=== PATIENT | female | born 1970 | race Two or more races ===

== ENCOUNTER 2016-08-31 17:42 | Emergency (ER) | payer BC ==
[2016-08-31] MEDS ORDERED: Ondansetron INJ* 2 MG/ML VIAL IV ONE (18:38)
[2016-08-31] MEDS ORDERED: methylPREDNISolone 125 MG* 2 ML VIAL IV ONE (18:38)
[2016-08-31] MEDS ORDERED: NS 0.9% 1000 ML* 2,000 ML IV ONE (18:38)
[2016-08-31] MEDS ORDERED: Morphine INJ* 4 MG/ML 1 ML CARPUJECT IV ONE ×2 (18:38→18:48)
[2016-08-31 18:51] VITALS: BP 94/65
[2016-08-31 18:54] LABS: Hematocrit 36 % (35-47); Mean Corpuscular HGB Conc 33 g/dl (31-36); Mean Corpuscular Hemoglobin 29 pg (27-31); Mean Corpuscular Volume 88 fL (80-97); Mean Platelet Volume 8 um3 (7.4-10.4); Red Cell Distribution Width 14 % (10.5-15); White Blood Count 8.4 10^3/ul (3.5-10.8)
--- NOTE | 2016-08-31 19:05 | RAD ---
Indication: Shortness of breath, pneumonia history of pulmonary hypertension. 2 views of the chest demonstrates no mediastinal shift. Enlarged pulmonary arteries are noted consistent with pulmonary arterial hypertension. Lung peterson are clear. When compared to previous exam of February 07, 2016 findings are unchanged. IMPRESSION: No pneumonia is identified. Sequela of pulmonary arterial hypertension with enlarged kamaljit and pulmonary arteries is noted.
[2016-08-31 19:10] LABS: Albumin 3.9 g/dL (3.2-5.2); Calcium 9.1 mg/dL (8.6-10.3); EGFR African American 106.1 (>60); EGFR Non-African American 82.5 (>60); Globulin 3.3 g/dL (2-4); Potassium 3.9 mmol/L (3.5-5.0); Total Bilirubin 0.3 mg/dL (0.2-1.0); Total Protein 7.2 g/dL (6.4-8.9)
[2016-08-31] MEDS ORDERED: Azithromycin TAB* 250 MG PO ONE (19:37)
[2016-08-31] MEDS ORDERED: oxyCODONE/Acetamin 5/325 MG* TAB PO ONE (19:39)
--- NOTE | 2016-08-31 20:10 | ED ---
Manolo Quintana Anna, scribed for Colby Charles MD on 08/31/16 at 1837 . Shortness of Breath - HPI Summary HPI Summary: Patient is a 46 y/o female coming to [facility] presenting with SOB that began one week ago. She tripped getting out of a chair and hit her chest on a windowsill one week ago. At that time, she denied soreness or watters on her chest. She then began to feel pressure inside her chest that made it hard to breathe. She feels like she is wheezing. It is painful to cough and laugh, and the pain is exacerbated by deep breaths. She has a cough which she describes as unproductive and dry. She has had chills and some loss of appetite. She denies edema, pain in lower extremities, fever, ecchymosis. She had a cough one month ago and was prescribed a Z pack. She denies other recent illness or exposure to sick contacts. She has had PNA before, but her symptoms do not feel similar to her previous PNA. - History of Current Complaint Chief Complaint: EDShortnessOfBreath Hx Obtained From: Patient, Family/Hotel Front Desk Clerk - Accompanied by family Onset/Duration: Lasting Weeks, Still Present Current Severity: Moderate Aggrevating Factors: Deep Breaths Associated Signs & Symptoms: Cough (Nonproductive), Wheezing, Chills - Allergy/Home Medications Allergies/Adverse Reactions: Allergies Allergy/AdvReac Type Severity Reaction Status Date / Time Adhesive Tape Allergy Rash Verified 02/10/16 09:59 Efavirenz [From Sustiva] Allergy Rash Verified 02/10/16 09:59 Ritonavir Allergy Rash Verified 02/10/16 09:59 [From Norvir Capsule] PMH/Surg Hx/FS Hx/Imm Hx Cardiovascular History: Reports: Hx Hypertension - PULMONARY HTN GI History: Reports: Other GI Disorders - PT REPORTS CHRONIC N/V EVER SINCE HIV DIAGNOSIS Sensory History: Reports: Hx Contacts or Glasses - LEFT AT HOME Opthamlomology History: Reports: Hx Contacts or Glasses - LEFT AT HOME Psychiatric History: Reports: Hx Anxiety - Surgical History Surgery Procedure, Year, and Place: DEVIATED SEPTUM REPAIR NOVEMBER 2015. HYSTERECTOMY 2O+YRS AGO Infectious Disease History: Yes Infectious Disease History: Reports: Hx Hepatitis - HEP C, Hx Human Immunodeficiency Virus (HIV) Denies: Traveled Outside the [place] in Last 30 Days - Family History Known Family History: Positive: Hypertension - Social History Lives: With Family Alcohol Use: Occasionally Hx Substance Use: No Substance Use Type: Reports: None Hx Tobacco Use: Yes Smoking Status (MU): Former Smoker Review of Systems Positive: Chills, Other - loss of appetite. Negative: Fever Positive: Shortness Of Breath, Cough Negative: Arthralgia, Myalgia Negative: Bruising All Other Systems Reviewed And Are Negative: Yes Physical Exam - Summary Physical Exam Summary: The patient is well-nourished in no acute distress and in no acute pain. The skin is warm and dry and skin color reflects adequate perfusion. HEENT: The head is normocephalic and atraumatic. The pupils are equal and reactive. The conjunctivae are clear and without drainage. Nares are patent and without drainage. Mouth reveals moist mucous membranes and the throat is without erythema and exudate. The external ears are intact. The ear canals are patent and without drainage. The tympanic membranes are intact. Neck is supple with full range of motion and non-tender. There are no carotid bruits. There is no neck vein distension. Respiratory: Reproducible pain over sternum and where ribs articulate. She has crackles, rhonchi, and wheezing at the base of the right lung upon auscultation. Cardiovascular: Heart is regular rhythm, slightly fast. Pulse is 93 bpm. There is no murmur or rub auscultated. There is no peripheral edema and pulses are symmetrical and equal. Abdomen: The abdomen is soft and non-tender. There are normal bowel sounds heard in all four quadrants and there is no organomegaly palpated. Musculoskeletal: There is no back pain noted. Extremities are non-tender with full range of motion. Capillary refill is 3 seconds. There is some cyanosis of nail beds. There is no peripheral edema or calf tenderness elicited. Neurological: Patient is alert and oriented to person, place and time. The patient has symmetrical motor strength in all four extremities. Cranial nerves are grossly intact. Deep tendon reflexes are symmetrical and equal in all four extremities. Psychiatric: The patient has an appropriate affect and does not exhibit any depression. She appears anxious. Triage Information Reviewed: Yes Vital Signs On Initial Exam: Initial Vitals Temp Pulse Resp BP Pulse Ox 98.6 F 93 16 105/62 96 08/31/16 17:45 03/12/17 17:45 08/31/16 17:45 08/31/16 17:45 08/31/16 17:45 Vital Signs Reviewed: Yes Diagnostics - Vital Signs Vital Signs Temp Pulse Resp BP Pulse Ox 08/31/16 17:45 98.6 F 93 16 105/62 96 - Laboratory Lab Results: Lab Results 08/31/16 08/31/16 08/31/16 Range/Units 18:35 18:35 18:45 WBC 8.4 (3.5-10.8) 10^3/ul RBC 4.10 (4.0-5.4) 10^6/ul Hgb 12.0 (12.0-16.0) g/dl Hct 36 (35-47) % MCV 88 (80-97) fL MCH 29 (27-31) pg MCHC 33 (31-36) g/dl RDW 14 (10.5-15) % Plt Count 211 (150-450) 10^3/ul MPV 8 (7.4-10.4) um3 Neut % (Auto) 45.6 (38-83) % Lymph % (Auto) 44.2 (25-47) % Caroline % (Auto) 8.0 (1-9) % Eos % (Auto) 1.5 (0-6) % Baso % (Auto) 0.7 (0-2) % Absolute Neuts (auto) 3.8 (1.5-7.7) 10^3/ul Absolute Lymphs (auto) 3.7 (1.0-4.8) 10^3/ul Absolute Monos (auto) 0.7 (0-0.8) 10^3/ul Absolute Eos (auto) 0.1 (0-0.6) 10^3/ul Absolute Basos (auto) 0.1 (0-0.2) 10^3/ul Absolute Nucleated RBC 0.01 10^3/ul Nucleated RBC % 0.1 INR (Anticoag Therapy) 0.85 L (0.89-1.11) D-Dimer, Quantitative < 200 (Less Than 230) ng/mL Sodium 135 (133-145) mmol/L Potassium 3.9 (3.5-5.0) mmol/L Chloride 107 (101-111) mmol/L Carbon Dioxide 22 (22-32) mmol/L Anion Gap 6 (2-11) mmol/L BUN 18 (6-24) mg/dL Creatinine 0.75 (0.51-0.95) mg/dL Est GFR ( Amer) 106.1 (>60) Est GFR (Non-Af Amer) 82.5 (>60) BUN/Creatinine Ratio 24.0 H (8-20) Glucose 96 (70-100) mg/dL Lactic Acid (0.5-2.0) mmol/L Calcium 9.1 (8.6-10.3) mg/dL Total Bilirubin 0.30 (0.2-1.0) mg/dL AST 15 (13-39) U/L ALT 7 (7-52) U/L Alkaline Phosphatase 69 (34-104) U/L Troponin I 0.00 (<0.04) ng/mL B-Natriuretic Peptide ( - 100) pg/mL Total Protein 7.2 (6.4-8.9) g/dL Albumin 3.9 (3.2-5.2) g/dL Globulin 3.3 (2-4) g/dL Albumin/Globulin Ratio 1.2 (1-3) 08/31/16 08/31/16 Range/Units 18:45 18:45 WBC (3.5-10.8) 10^3/ul RBC (4.0-5.4) 10^6/ul Hgb (12.0-16.0) g/dl Hct (35-47) % MCV (80-97) fL MCH (27-31) pg MCHC (31-36) g/dl RDW (10.5-15) % Plt Count (150-450) 10^3/ul MPV (7.4-10.4) um3 Neut % (Auto) (38-83) % Lymph % (Auto) (25-47) % Caroline % (Auto) (1-9) % Eos % (Auto) (0-6) % Baso % (Auto) (0-2) % Absolute Neuts (auto) (1.5-7.7) 10^3/ul Absolute Lymphs (auto) (1.0-4.8) 10^3/ul Absolute Monos (auto) (0-0.8) 10^3/ul Absolute Eos (auto) (0-0.6) 10^3/ul Absolute Basos (auto) (0-0.2) 10^3/ul Absolute Nucleated RBC 10^3/ul Nucleated RBC % INR (Anticoag Therapy) (0.89-1.11) D-Dimer, Quantitative (Less Than 230) ng/mL Sodium (133-145) mmol/L Potassium (3.5-5.0) mmol/L Chloride (101-111) mmol/L Carbon Dioxide (22-32) mmol/L Anion Gap (2-11) mmol/L BUN (6-24) mg/dL Creatinine (0.51-0.95) mg/dL Est GFR ( Amer) (>60) Est GFR (Non-Af Amer) (>60) BUN/Creatinine Ratio (8-20) Glucose (70-100) mg/dL Lactic Acid 0.8 (0.5-2.0) mmol/L Calcium (8.6-10.3) mg/dL Total Bilirubin (0.2-1.0) mg/dL AST (13-39) U/L ALT (7-52) U/L Alkaline Phosphatase (34-104) U/L Troponin I (<0.04) ng/mL B-Natriuretic Peptide 15 ( - 100) pg/mL Total Protein (6.4-8.9) g/dL Albumin (3.2-5.2) g/dL Globulin (2-4) g/dL Albumin/Globulin Ratio (1-3) Result Diagrams: 08/31/16 18:35 08/31/16 18:45 Lab Statement: Any lab studies that have been ordered have been reviewed, and results considered in the medical decision making process. - Radiology CXR Xray Interpretation: Positive (See Comments) Radiology Interpretation Completed By: Radiologist - IMPRESSION: No pneumonia is identified. Sequela of pulmonary arterial hypertension with enlarged kamaljit and pulmonary arteries is noted. - EKG 1936 Cardiac Rate: NL - 77 bpm EKG Rhythm: Sinus Rhythm EKG Interpretation: t-wave inversions in V1, V2, V3. Poor r-wave progression. EKG Comparison: No Significant Change - EKG same compared to 02/07/2016 Re-Evaluation - Re-Evaluation First Eval Re-Evaluation Time: 19:30 Comment: Patient still has some pain with deep breaths. Discussed results and plan of care with patient and family. They are agreeable with plan. Patient has a standing appointment with her bench scientist in five days. Course/Dx - Course Assessment/Plan: 46 y/o woman with one week history of chest discomfort aater falling nd striking her chest on a windowsill. She has pain with inspiration. Pain is worse when she lies supine. She says she is SOB. History HIV and pulmonary hypertension. Denies calf pain. Denies recent surgeries. Non-smoker. Denies fever and chills. CXR reveals no PNA or PTX. D-dimer < 200. Lab studies WNL. Treated with Abx and analgesia. Dx is bronchitis, chest wall pain, and follow-up with PCP. - Diagnoses Differential Diagnosis/HQI/PQRI: Positive: Bronchitis, CHF, PA, Pneumonia, Pneumothorax, Pulmonary Embolism, Other - pericarditis Provider Diagnoses: Bronchitis, Chest wall pain Discharge - Discharge Plan Condition: Stable Disposition: HOME Prescriptions: Azithromycin TAB* [Zithromax TAB (Z-EVETTE) 250 mg #6 tabs] 2 tab PO .TODAY, THEN 1 DAILY #1 evette Ibuprofen TAB* [Motrin TAB* 600 MG] 600 mg PO Q6H PRN #30 tab PRN Reason: pain oxyCODONE/Acetamin 5/325 MG* [Percocet 5/325 TAB*] 1 tab PO Q6H PRN #20 tab MDD 4 PRN Reason: pain Patient Education Materials: Ibuprofen (By mouth), Oxycodone/Acetaminophen (By mouth), Azithromycin (By mouth), Dyspnea (ED) Referrals: Ольга Childress MD [Primary Care Provider] - Additional Instructions: Follow up with primary care provider within 48 hours. Return to the emergency department for any new or worsening symptoms. The documentation as recorded by the Manolo lock Anna accurately reflects the service I personally performed and the decisions made by , Colby Charles MD.
== END 2016-08-31 20:15 | disposition home or self-care (01) ==
LOC: ED 17:42
DX: J40 Bronchitis, not specified as acute or chronic (principal); R07.89 Other chest pain; I27.2 Other secondary pulmonary hypertension; B20 Human immunodeficiency virus [HIV] disease; Z87.01 Personal history of pneumonia (recurrent); Z87.891 Personal history of nicotine dependence
CPT/HCPCS: 36415; 71020; 80053; 83605; 83880; 84484; 85025; 85379; 85610; 93005; 96360; 96374; 96375; 96376; 99283; A9270-GY; J2270; J2405; J2930

== ENCOUNTER 2016-10-29 17:01 | Emergency (ER) | payer BC ==
[2016-10-29] MEDS ORDERED: Albuterol/Ipratropium NEB.SOL* Albuterol 2.5 MG/Ipratropium 0.5 MG 3 ML INH ONE ×2 (18:00→20:47)
[2016-10-29] MEDS ORDERED: HYDROmorphone* 1 MG/ML 1 ML SYR IV ONE (18:00)
[2016-10-29 18:35] LABS: Hematocrit 35 % (35-47); Hemoglobin 11.3 g/dl (12.0-16.0); Mean Corpuscular HGB Conc 33 g/dl (31-36); Mean Corpuscular Hemoglobin 28 pg (27-31); Mean Corpuscular Volume 85 fL (80-97); Mean Platelet Volume 8 um3 (7.4-10.4); Red Blood Count 4.06 10^6/ul (4.0-5.4); Red Cell Distribution Width 14 % (10.5-15); White Blood Count 7.4 10^3/ul (3.5-10.8)
[2016-10-29 18:53] LABS: Albumin 4.1 g/dL (3.2-5.2); BUN/Creatinine Ratio 13.6 (8-20); Calcium 9.5 mg/dL (8.6-10.3); EGFR African American 88.2 (>60); EGFR Non-African American 68.6 (>60); Globulin 3.8 g/dL (2-4); Total Bilirubin 0.4 mg/dL (0.2-1.0); Total Protein 7.9 g/dL (6.4-8.9)
[2016-10-29 18:58] LABS: Potassium 3.7 mmol/L (3.5-5.0)
[2016-10-29] MEDS ORDERED: Iohexol 350* (CONTRAST) 500 ML MDV IV ONE (19:16)
--- NOTE | 2016-10-29 20:07 | RAD ---
INDICATION: Chest pain. Diagnosed with pneumonia today. COMPARISON: July 01, 2008 CT. TECHNIQUE: Multidetector CT images were obtained from the lung apices to the upper abdomen with 61 mL Omnipaque 350 IV contrast. Pulmonary angiogram protocol. Multiplanar reformation including with maximum intensity projection. REPORT: Negative for central endobronchial lesions. Clear lungs and pleural spaces. Negative for pneumothorax. Normal size range mediastinal and hilar lymph nodes with dominant 0.8 cm short axis precarinal lymph node. Negative for thoracic lymphadenopathy. Negative for cardiomegaly or pericardial effusion. Normal diameter thoracic aorta. Enlarged main pulmonary arteries measuring up to 3.3 cm diameter on the RIGHT and 3.0 cm diameter on the LEFT without significant interval change. For comparison the ascending aorta at the level of the main pulmonary arteries measures 2.5 cm diameter. Suggestion of hypertrophy at the RIGHT cardiac ventricle. No filling defects are identified from the main to the subsegmental pulmonary arteries to indicate presence of a pulmonary embolism. Unremarkable Limited images through the upper abdomen. Healed LEFT second, third, fourth, and fifth rib fractures. Mild multilevel thoracic degenerative spondylosis with associated reactive endplate sclerosis. Negative for suspicious focal osseous lesions. IMPRESSION: 1. No evidence for pulmonary embolism. 2. Stigmata of pulmonary arterial hypertension. 3. No evidence for pneumonia.
[2016-10-29] MEDS ORDERED: methylPREDNISolone 125 MG* 2 ML VIAL IV ONE (20:47)
[2016-10-29 21:48] VITALS: BP 102/57
[2016-10-29] MEDS ORDERED: Albuterol HFA INHALER* 8 gm MDI INH ONE (22:09)
--- NOTE | 2016-10-30 15:42 | ED ---
Brandon Quintana Alok, scribed for Austin Miranda MD on 10/29/16 at 1810 . Complex/Multi-Sys Presentation - HPI Summary HPI Summary: 46F presents to the ED from her PCP at [facility] for CP and a productive cough. Pt states that what began as a productive cough with yellow sputum and sinus headache one week ago was treated with a Zpak. Following the Zpak, the pt states that her symptoms were worsen than before with a more aggressive cough with clear sputum. Pt was put on a different antibiotic and given an CXR at [facility] showing "dilated pulmonary vessels and arterial dilation". Pt also c/o left sided CP beginning 4 days ago which worsens with deep breaths. Pt denies fever greater than one degree. Pt has h/o PNA and states her symptoms feel different. Additional PMHx includes HIV, and pulmonary arterial hypertension. Pt was a former tobacco smoker 3 years ago. Pt is allergic to Zofran. - History Of Current Complaint Chief Complaint: EDChestPainROMI Time Seen by Provider: 10/29/16 17:33 Hx Obtained From: Patient Onset/Duration: Gradual Onset, Lasting Days, Still Present Timing: Constant Severity Currently: Moderate Severity Initially: Moderate Location: Pain At: - Left side chest Aggravating Factor(s): Deep Breath Associated Signs And Symptoms: Positive: Headache, Cough, Wheezing, Chest Pain. Negative: Fever - Allergies/Home Medications Allergies/Adverse Reactions: Allergies Allergy/AdvReac Type Severity Reaction Status Date / Time Adhesive Tape Allergy Rash Verified 02/10/16 09:59 Efavirenz [From Sustiva] Allergy Rash Verified 02/10/16 09:59 Ritonavir Allergy Rash Verified 02/10/16 09:59 [From Norvir Capsule] PMH/Surg Hx/FS Hx/Imm Hx Cardiovascular History: Reports: Hx Hypertension - PULMONARY HTN GI History: Reports: Other GI Disorders - PT REPORTS CHRONIC N/V EVER SINCE HIV DIAGNOSIS Sensory History: Reports: Hx Contacts or Glasses - LEFT AT HOME Opthamlomology History: Reports: Hx Contacts or Glasses - LEFT AT HOME Psychiatric History: Reports: Hx Anxiety - Surgical History Surgery Procedure, Year, and Place: DEVIATED SEPTUM REPAIR NOVEMBER 2015. HYSTERECTOMY 2O+YRS AGO Infectious Disease History: Reports: Hx Hepatitis - HEP C, Hx Human Immunodeficiency Virus (HIV) Denies: Traveled Outside the [place] in Last 30 Days - Family History Known Family History: Positive: Hypertension - Social History Occupation: Unemployed Lives: With Family Alcohol Use: Occasionally Hx Substance Use: No Substance Use Type: Reports: None Hx Tobacco Use: Yes Smoking Status (MU): Former Smoker Review of Systems Negative: Fever Positive: Chest Pain Positive: Cough Positive: Headache All Other Systems Reviewed And Are Negative: Yes Physical Exam Triage Information Reviewed: Yes Vital Signs On Initial Exam: Initial Vitals Temp Pulse Resp BP Pulse Ox 97.5 F 114 19 117/81 95 10/29/16 17:02 10/29/16 17:02 10/29/16 17:02 10/29/16 17:02 10/29/16 17:02 Vital Signs Reviewed: Yes Appearance: Positive: Well-Appearing, No Pain Distress Skin: Positive: Warm, Skin Color Reflects Adequate Perfusion, Dry Head/Face: Positive: Normal Head/Face Inspection Eyes: Positive: Normal ENT: Positive: Normal ENT inspection Neck: Positive: Supple, Nontender Respiratory/Lung Sounds: Positive: Other - Diffuse expiratory wheezes Cardiovascular: Positive: RRR Abdomen Description: Positive: Nontender, Soft Bowel Sounds: Positive: Present Musculoskeletal: Positive: Normal Neurological: Positive: Normal Psychiatric: Positive: Normal, Affect/Mood Appropriate - Caldwell Coma Scale Coma Scale Total: 15 Diagnostics - Vital Signs Vital Signs Temp Pulse Resp BP Pulse Ox 10/29/16 17:16 97.5 F 114 19 117/81 97 10/29/16 17:02 97.5 F 114 19 117/81 95 - Laboratory Lab Results: Lab Results 10/29/16 10/29/16 10/29/16 Range/Units 18:25 18:25 18:25 WBC 7.4 (3.5-10.8) 10^3/ul RBC 4.06 (4.0-5.4) 10^6/ul Hgb 11.3 L (12.0-16.0) g/dl Hct 35 (35-47) % MCV 85 (80-97) fL MCH 28 (27-31) pg MCHC 33 (31-36) g/dl RDW 14 (10.5-15) % Plt Count 253 (150-450) 10^3/ul MPV 8 (7.4-10.4) um3 Neut % (Auto) 48.5 (38-83) % Lymph % (Auto) 38.7 (25-47) % Concho % (Auto) 8.7 (1-9) % Eos % (Auto) 2.6 (0-6) % Baso % (Auto) 1.5 (0-2) % Absolute Neuts (auto) 3.6 (1.5-7.7) 10^3/ul Absolute Lymphs (auto) 2.8 (1.0-4.8) 10^3/ul Absolute Monos (auto) 0.6 (0-0.8) 10^3/ul Absolute Eos (auto) 0.2 (0-0.6) 10^3/ul Absolute Basos (auto) 0.1 (0-0.2) 10^3/ul Absolute Nucleated RBC 0 10^3/ul Nucleated RBC % 0 Sodium 136 (133-145) mmol/L Potassium 3.7 (3.5-5.0) mmol/L Chloride 106 (101-111) mmol/L Carbon Dioxide 24 (22-32) mmol/L Anion Gap 6 (2-11) mmol/L BUN 12 (6-24) mg/dL Creatinine 0.88 (0.51-0.95) mg/dL Est GFR ( Amer) 88.2 (>60) Est GFR (Non-Af Amer) 68.6 (>60) BUN/Creatinine Ratio 13.6 (8-20) Glucose 89 (70-100) mg/dL Lactic Acid 0.6 (0.5-2.0) mmol/L Calcium 9.5 (8.6-10.3) mg/dL Total Bilirubin 0.40 (0.2-1.0) mg/dL AST 19 (13-39) U/L ALT 9 (7-52) U/L Alkaline Phosphatase 75 (34-104) U/L Troponin I 0.00 (<0.04) ng/mL Total Protein 7.9 (6.4-8.9) g/dL Albumin 4.1 (3.2-5.2) g/dL Globulin 3.8 (2-4) g/dL Albumin/Globulin Ratio 1.1 (1-3) /04/07 Range/Units 21:46 WBC (3.5-10.8) 10^3/ul RBC (4.0-5.4) 10^6/ul Hgb (12.0-16.0) g/dl Hct (35-47) % MCV (80-97) fL MCH (27-31) pg MCHC (31-36) g/dl RDW (10.5-15) % Plt Count (150-450) 10^3/ul MPV (7.4-10.4) um3 Neut % (Auto) (38-83) % Lymph % (Auto) (25-47) % [place] % (Auto) (1-9) % Eos % (Auto) (0-6) % Baso % (Auto) (0-2) % Absolute Neuts (auto) (1.5-7.7) 10^3/ul Absolute Lymphs (auto) (1.0-4.8) 10^3/ul Absolute Monos (auto) (0-0.8) 10^3/ul Absolute Eos (auto) (0-0.6) 10^3/ul Absolute Basos (auto) (0-0.2) 10^3/ul Absolute Nucleated RBC 10^3/ul Nucleated RBC % Sodium (133-145) mmol/L Potassium (3.5-5.0) mmol/L Chloride (101-111) mmol/L Carbon Dioxide (22-32) mmol/L Anion Gap (2-11) mmol/L BUN (6-24) mg/dL Creatinine (0.51-0.95) mg/dL Est GFR ( Amer) (>60) Est GFR (Non-Af Amer) (>60) BUN/Creatinine Ratio (8-20) Glucose (70-100) mg/dL Lactic Acid (0.5-2.0) mmol/L Calcium (8.6-10.3) mg/dL Total Bilirubin (0.2-1.0) mg/dL AST (13-39) U/L ALT (7-52) U/L Alkaline Phosphatase (34-104) U/L Troponin I 0.00 (<0.04) ng/mL Total Protein (6.4-8.9) g/dL Albumin (3.2-5.2) g/dL Globulin (2-4) g/dL Albumin/Globulin Ratio (1-3) Result Diagrams: 10/29/16 18:25 10/29/16 18:25 Lab Statement: Any lab studies that have been ordered have been reviewed, and results considered in the medical decision making process. - CT Chest/Thorax CTA CT Interpretation: Positive (See Comments) - IMPRESSION: 1. No evidence for pulmonary embolism. 2. Stigmata of pulmonary arterial hypertension. 3. No evidence for pneumonia. CT Interpretation Completed By: Radiologist - EKG 1709 Cardiac Rate: NL - 84 bpm EKG Rhythm: Sinus Rhythm ST Segment: Non-Specific - changes Complex Multi-Symp Course/Dx Course Of Treatment: Ms. Jackson presented with the concern for CP and SOB. She had been on a z-pack and her cough was less productive but her coughing and pain were worse. She R/O'd for cardiac problems and pneumonia and improved with nebulizers and steroids and I will D/C her with steroids and an inhaler. - Diagnoses Provider Diagnoses: Bronchitis with bronchospasm Discharge - Discharge Plan Condition: Stable Disposition: HOME Prescriptions: Methylprednisolone [Medrol Dosepak 4 MG*] 4 mg PO .SEE EVETTE INSTRUCTION #1 tab Patient Education Materials: Bronchospasm (ED) Referrals: Ольга Childress MD [Primary Care Provider] - The documentation as recorded by the Brandon lock Alok accurately reflects the service I personally performed and the decisions made by me, Austin Miranda MD.
== END 2016-10-29 22:26 | disposition home or self-care (01) ==
LOC: ED 17:01
DX: J40 Bronchitis, not specified as acute or chronic (principal); R51 Headache; R05 Cough; R07.9 Chest pain, unspecified; Z87.891 Personal history of nicotine dependence
CPT/HCPCS: 36415; 71275; 80053; 83605; 84484; 85025; 93005; 94640; 96374; 99283; A9270-GY; J1170; J2930; Q9967

== ENCOUNTER 2017-03-17 21:31 | Observation (INO) | payer BC ==
[2017-03-17 22:33] LABS: Hematocrit 35 % (35-47); Hemoglobin 11.5 g/dl (12.0-16.0); Mean Corpuscular HGB Conc 33 g/dl (31-36); Mean Corpuscular Hemoglobin 26 pg (27-31); Mean Corpuscular Volume 79 fL (80-97); Mean Platelet Volume 8 um3 (7.4-10.4); Red Blood Count 4.41 10^6/ul (4.0-5.4); Red Cell Distribution Width 19 % (10.5-15); White Blood Count 9.3 10^3/ul (3.5-10.8)
[2017-03-17 22:47] LABS: ALT 10 U/L (7-52); AST 15 U/L (13-39); Albumin 3.6 g/dL (3.2-5.2); Alkaline Phosphatase 51 U/L (34-104); Anion Gap 5 mmol/L (2-11); BUN/Creatinine Ratio 17.7 (8-20); Blood Urea Nitrogen 17 mg/dL (6-24); C Reactive Protein < 1.00 mg/L (< 5.00); CO2 Carbon Dioxide 25 mmol/L (22-32); Calcium 8.8 mg/dL (8.6-10.3); Chloride 108 mmol/L (101-111); EGFR African American 79.8 (>60); Globulin 3.1 g/dL (2-4); Glucose 86 mg/dL (70-100); Lipase 36 U/L (11.0-82.0); Magnesium 2.1 mg/dL (1.9-2.7); Sodium 138 mmol/L (133-145); Total Protein 6.7 g/dL (6.4-8.9)
[2017-03-17] MEDS ORDERED: Levofloxacin 750 MG IVPREMIX(* 750 MG/150 ML BAG IVPB ONE (22:54)
[2017-03-17] MEDS ORDERED: Albuterol/Ipratropium NEB.SOL* Albuterol 2.5 MG/Ipratropium 0.5 MG 3 ML INH ONE ×3 (22:55→23:18)
[2017-03-17] MEDS ORDERED: methylPREDNISolone 125 MG* 2 ML VIAL IV ONE (22:55)
[2017-03-17] MEDS ORDERED: Ketorolac INJ* 30 MG/ML 1 ML VIAL IV ONE (22:56)
[2017-03-18 00:45] LABS: Urine Bacteria Absent (Absent); Urine Bilirubin Negative (Negative); Urine Glucose 1+(50 mg/dL) (Negative); Urine Nitrite Negative (Negative)
[2017-03-18] MEDS ORDERED: Ondansetron INJ* 2 MG/ML VIAL IV ONE (00:59)
[2017-03-18] MEDS ORDERED: Morphine INJ* 4 MG/ML 1 ML CARPUJECT IV ONE ×2 (00:59→02:34)
[2017-03-18] MEDS: NS 0.9% 1000 ML* 2,000 ML IV ONE ×2 (01:42→03:42)
[2017-03-18] MEDS ORDERED: Iohexol 350* (CONTRAST) 500 ML MDV IV ONE (01:56)
[2017-03-18] MEDS ORDERED: Sulfamethoxazole/Trimeth IV(*) 160 MG in D5W 250 ML BAG* 250 ML IVPB SCH (02:00)
[2017-03-18] MEDS ORDERED: Morphine INJ* 4 MG/ML 1 ML CARPUJECT ONE (02:38)
[2017-03-18] MEDS ORDERED: Acetaminophen TAB* 325 MG PO PRN (03:13)
[2017-03-18] MEDS ORDERED: Albuterol 2.5 MG/3 ML NEB.SOL* (0.083%) INH PRN (03:13)
[2017-03-18] MEDS ORDERED: Ondansetron INJ* 2 MG/ML VIAL IV PRN (03:14)
[2017-03-18] MEDS ORDERED: CMCS:Melatonin (NF) 3 MG TAB PO PRN (03:14)
--- NOTE | 2017-03-18 03:19 | HP ---
H&P (Free Text) History and Physical: PCP: Patient can't recall name. Infectious Disease: Dr Hernandez in [place] Date/Time: 03/18/2017 0240 CC: chest tightness, wheeze, productive cough HPI: Mrs Jackson is a 46YO female HX HIV+ status followed by ID in [place] who is uncertain what her last CD4 count was. She relates onset of an initially dry cough last Thursday for which she was seen in a [facility] urgent care, diagnosed with bronchitis, and prescribed Ceftin BID [id number] and an inhaler. She has taken the ABX as prescribed and would have run out tomorrow. However, over the past 3days she has had gradually worsening chest tightness, wheeze, and SOB for which which she decided to present. [facility] [place] show her last absolute CD4 count was 171 in January of 2016. She states that it was drawn while she had a pneumonia and went up afterwards. PMedHx HIV+ shingles HTN pulmonary HTN, severe hepatitis C Ambulatory Orders ALPRAZolam TAB* [Xanax TAB*] 1 mg PO TID PRN 09/28/14 Ambrisentan [Letairis] 10 mg PO DAILY 09/28/14 Darunavir(NF) [Prezista(NF)] 600 mg PO BID 09/28/14 Etravirine (NF) [Intelence (NF)] 200 mg PO BID 09/28/14 Raltegravir* [Isentress*] 400 mg PO BID 09/28/14 Omeprazole CAP* [Prilosec CAP* 20 MG] 20 mg PO BID@0600,1800 #60 cap. oxyCODONE TAB* [Roxycodone TAB 5 mg*] 5 mg PO Q4H PRN #60 tab MDD 6 01/25/16 oxyCODONE/Acetamin 5/325 MG* [Percocet 5/325 TAB*] 1 tab PO Q6H PRN #12 tab MDD 4 02/07/16 Bacitracin (Topical) [Hm Bacitracin] 500 unit TOPICAL QID #3 tube 02/10/16 Cephalexin CAP* [Keflex 500 CAP*] 500 mg PO QID #40 cap 02/10/16 oxyCODONE/Acetamin 5/325 MG* [Percocet 5/325 TAB*] 1 tab PO Q6H PRN #20 tab MDD 4 02/10/16 Azithromycin TAB* [Zithromax TAB (Z-EVETTE) 250 mg #6 tabs] 2 tab PO .TODAY, THEN 1 DAILY #1 evette 08/31/16 Ibuprofen TAB* [Motrin TAB* 600 MG] 600 mg PO Q6H PRN #30 tab 08/31/16 oxyCODONE/Acetamin 5/325 MG* [Percocet 5/325 TAB*] 1 tab PO Q6H PRN #20 tab MDD 4 08/31/16 Methylprednisolone [Medrol Dosepak 4 MG*] 4 mg PO .SEE EVETTE INSTRUCTION #1 tab Allergies Adhesive Tape Allergy (Verified 02/10/16 09:59) Rash Efavirenz [From Sustiva] Allergy (Verified 02/10/16 09:59) Rash Piperacillin [From Zosyn] Allergy (Verified 03/18/17 02:50) Shakes Ritonavir [From Norvir Capsule] Allergy (Verified 02/10/16 09:59) Rash Tazobactam [From Zosyn] Allergy (Verified 03/18/17 02:50) Shakes PSurgHx hysterectomy SocHx: former smoker quit ~10 years ago, no alcohol or recreational drugs, uses medical marijuana; full code status FamHx: Mother is alive at 69, healthy. She never met nor knew of her father. Brother: healthy ROS: as above, otherwise reviewed and all were negative vitals: Vital Signs Temp Pulse 78 03/17/17 23:26 Resp 25 03/18/17 02:44 BP 98/64 03/17/17 22:30 Pulse Ox 100 03/17/17 23:26 Intake & Output 03/17/17 03/17/17 03/18/17 11:59 23:59 11:59 Weight 56.699 kg 56.699 kg Constitutional: NAD, normally developed, well-nourished female HEENM: atraumatic; sclera/conjunctiva: non-icteric/clear; hearing: clinically intact; oropharynx: clear, mucosa moist Neck: soft tissue: no nuchal rigidity; thyroid: normal Pulmonary: diminished B, mid- to end- expiratory wheeze, fair aeration, no accessory muscle use CV: RR/RR, normal S1S2, no carotid bruit, no jugular venous distention, 2+ B DP/ PT, no edema Abdominal: soft, non-distended, non-tender, no rebound/guarding/rigidity, normoactive bowel sounds, no hepatosplenomegaly or masses, no costovertebral angle tenderness Musculoskeletal: general: grossly intact, no palpable tenderness Integumental: normal appearance and texture of exposed skin Psychiatric orientation: AA&O to PPS affect: calm mood: pleasant eye contact: good content: reliable responses: timely insight: good Testing: Lab Results 03/17/17 03/17/17 03/17/17 Range/Units 22:20 22:20 22:20 WBC (3.5-10.8) 10^3/ul RBC (4.0-5.4) 10^6/ul Hgb (12.0-16.0) g/dl Hct (35-47) % MCV (80-97) fL MCH (27-31) pg MCHC (31-36) g/dl RDW (10.5-15) % Plt Count (150-450) 10^3/ul MPV (7.4-10.4) um3 Neut % (Auto) (38-83) % Lymph % (Auto) (25-47) % [place] % (Auto) (1-9) % Eos % (Auto) (0-6) % Baso % (Auto) (0-2) % Absolute Neuts (auto) (1.5-7.7) 10^3/ul Absolute Lymphs (auto) (1.0-4.8) 10^3/ul Absolute Monos (auto) (0-0.8) 10^3/ul Absolute Eos (auto) (0-0.6) 10^3/ul Absolute Basos (auto) (0-0.2) 10^3/ul Absolute Nucleated RBC 10^3/ul Nucleated RBC % INR (Anticoag Therapy) 0.82 L (0.89-1.11) APTT 20.5 L (26.0-36.3) seconds Sodium 138 (133-145) mmol/L Potassium 4.0 (3.5-5.0) mmol/L Chloride 108 (101-111) mmol/L Carbon Dioxide 25 (22-32) mmol/L Anion Gap 5 (2-11) mmol/L BUN 17 (6-24) mg/dL Creatinine 0.96 H (0.51-0.95) mg/dL Est GFR ( Amer) 79.8 (>60) Est GFR (Non-Af Amer) 62.0 (>60) BUN/Creatinine Ratio 17.7 (8-20) Glucose 86 (70-100) mg/dL Lactic Acid (0.5-2.0) mmol/L Calcium 8.8 (8.6-10.3) mg/dL Magnesium 2.1 (1.9-2.7) mg/dL Total Bilirubin 0.30 (0.2-1.0) mg/dL AST 15 (13-39) U/L ALT 10 (7-52) U/L Alkaline Phosphatase 51 (34-104) U/L Troponin I 0.00 (<0.04) ng/mL C-Reactive Protein < 1.00 (< 5.00) mg/L B-Natriuretic Peptide 47 ( - 100) pg/mL Total Protein 6.7 (6.4-8.9) g/dL Albumin 3.6 (3.2-5.2) g/dL Globulin 3.1 (2-4) g/dL Albumin/Globulin Ratio 1.2 (1-3) Lipase 36 (11.0-82.0) U/L TSH 7.80 H (0.34-5.60) mcIU/mL Urine Color Urine Appearance Urine pH (5-9) Ur Specific [place] (1.010-1.030) Urine Protein (Negative) Urine Ketones (Negative) Urine Blood (Negative) Urine Nitrate (Negative) Urine Bilirubin (Negative) Urine Urobilinogen (Negative) Ur Leukocyte Esterase (Negative) Urine WBC (Auto) (Absent) Urine RBC (Auto) (Absent) Ur Squamous Epith Cells (Absent) Urine Bacteria (Absent) Urine Glucose (Negative) 03/17/17 03/17/17 03/18/17 Range/Units 22:20 22:20 00:00 WBC 9.3 (3.5-10.8) 10^3/ul RBC 4.41 (4.0-5.4) 10^6/ul Hgb 11.5 L (12.0-16.0) g/dl Hct 35 (35-47) % MCV 79 L (80-97) fL MCH 26 L (27-31) pg MCHC 33 (31-36) g/dl RDW 19 H (10.5-15) % Plt Count 252 (150-450) 10^3/ul MPV 8 (7.4-10.4) um3 Neut % (Auto) 46.8 (38-83) % Lymph % (Auto) 44.6 (25-47) % [place] % (Auto) 6.6 (1-9) % Eos % (Auto) 1.1 (0-6) % Baso % (Auto) 0.9 (0-2) % Absolute Neuts (auto) 4.3 (1.5-7.7) 10^3/ul Absolute Lymphs (auto) 4.1 (1.0-4.8) 10^3/ul Absolute Monos (auto) 0.6 (0-0.8) 10^3/ul Absolute Eos (auto) 0.1 (0-0.6) 10^3/ul Absolute Basos (auto) 0.1 (0-0.2) 10^3/ul Absolute Nucleated RBC 0 10^3/ul Nucleated RBC % 0 INR (Anticoag Therapy) (0.89-1.11) APTT (26.0-36.3) seconds Sodium (133-145) mmol/L Potassium (3.5-5.0) mmol/L Chloride (101-111) mmol/L Carbon Dioxide (22-32) mmol/L Anion Gap (2-11) mmol/L BUN (6-24) mg/dL Creatinine (0.51-0.95) mg/dL Est GFR ( Amer) (>60) Est GFR (Non-Af Amer) (>60) BUN/Creatinine Ratio (8-20) Glucose (70-100) mg/dL Lactic Acid 0.8 (0.5-2.0) mmol/L Calcium (8.6-10.3) mg/dL Magnesium (1.9-2.7) mg/dL Total Bilirubin (0.2-1.0) mg/dL AST (13-39) U/L ALT (7-52) U/L Alkaline Phosphatase (34-104) U/L Troponin I (<0.04) ng/mL C-Reactive Protein (< 5.00) mg/L B-Natriuretic Peptide ( - 100) pg/mL Total Protein (6.4-8.9) g/dL Albumin (3.2-5.2) g/dL Globulin (2-4) g/dL Albumin/Globulin Ratio (1-3) Lipase (11.0-82.0) U/L TSH (0.34-5.60) mcIU/mL Urine Color Yellow Urine Appearance Clear Urine pH 6.0 (5-9) Ur Specific [place] 1.020 (1.010-1.030) Urine Protein Negative (Negative) Urine Ketones Trace H (Negative) Urine Blood Negative (Negative) Urine Nitrate Negative (Negative) Urine Bilirubin Negative (Negative) Urine Urobilinogen Negative (Negative) Ur Leukocyte Esterase Trace H (Negative) Urine WBC (Auto) Trace(0-5/hpf) (Absent) Urine RBC (Auto) Trace(0-2/hpf) (Absent) Ur Squamous Epith Cells Present H (Absent) Urine Bacteria Absent (Absent) Urine Glucose 1+(50 mg/dl) H (Negative) ECG, personally reviewed: NSR rate 79, no ischemia CXR, personally reviewed: question of RLL infiltrate CTA chest, personally reviewed: no infiltrate seen, no PE seen, dilated pulmonary arteries consistent w/ severe pHTN; formal read pending Impression: 46F HX long-standing HIV+ status presents with bronchitis failed outpatient treatment, unknown CD4 count; also suspect COPD exacerbation which is the primary reason I feel she 'failed' TX for her bronchitis DIAGNOSIS & PLAN Primary bronchitis failed outpatient [place] : HIV+ status, no treatment ?CD4 count : request records from her ID in [place] : PO sulfamethoxazole/trimethoprim DS BID until CD4 count obtained (single IV dose given by ED) : IV levofloxacin : IVFs : supplemental oxygen : check rapid influenza : supportive care suspect undiagnosed COPD exacerbation : albuterol nebs : mometasone/formoterol : tiotropium : IV methylprednisolone : incentive spirometry : consider pulmonology consult in AM pulmonary HTN, severe : update ECHO Secondary shingles : review meds once reconciled HTN : review meds once reconciled pulmonary HTN, severe : no acute issues HX hepatitis C : no acute issues Admission Rational: inpatient for suspected COPD exacerbation & bronchitis failed outpatient ABX not anticipated to be adequately resolved to allow for discharge w/i 48h DVTp: heparin SQ Code Status: full HCP: , Rudy
[2017-03-18] MEDS ORDERED: ALPRAZolam TAB* 0.5 MG PO PRN (04:17)
[2017-03-18] MEDS ORDERED: Morphine INJ* 2 MG/ML 1 ML SYRINGE (TWO MG - NEW SYRINGE VERSION) IV PRN (04:19)
[2017-03-18] MEDS: NS 0.9% 1000 ML* 1,000 ML IV SCH ×2 (04:49→21:04)
[2017-03-18] MEDS: fentaNYL* 50 MCG/ML 2 ML VIAL (100 MCG VIAL) IV PRN ×2 (06:23→10:39)
[2017-03-18] MEDS: Omeprazole CAP* 20 MG PO SCH (06:23)
--- NOTE | 2017-03-18 07:37 | RAD ---
HISTORY: Shortness of breath, pulmonary hypertension COMPARISONS: August 31, 2016 VIEWS: 1: frontal portable view of the chest at 10:38 PM FINDINGS: LINES AND TUBES: None. CARDIOMEDIASTINAL SILHOUETTE: There is enlargement of the kamaljit consistent with history of pulmonary arterial hypertension. This is stable. PLEURA: The costophrenic angles are sharp. No pleural abnormalities are noted. LUNG PARENCHYMA: There is patchy alveolar opacification of the right lung base. ABDOMEN: The upper abdomen is clear. There is no subphrenic gas. BONES AND SOFT TISSUES: No bone or soft tissue abnormalities are noted. IMPRESSION: 1. PATCHY RIGHT BASILAR ATELECTASIS VERSUS EARLY CONSOLIDATION. 2. ENLARGEMENT OF THE PULMONARY ARTERIES CONSISTENT WITH THE HISTORY OF PULMONARY ARTERIAL HYPERTENSION
[2017-03-18 07:44] LABS: Hematocrit 31 % (35-47); Hemoglobin 10.4 g/dl (12.0-16.0); Mean Corpuscular HGB Conc 33 g/dl (31-36); Mean Corpuscular Hemoglobin 26 pg (27-31); Mean Corpuscular Volume 79 fL (80-97); Mean Platelet Volume 8 um3 (7.4-10.4); Red Blood Count 3.93 10^6/ul (4.0-5.4); Red Cell Distribution Width 19 % (10.5-15); White Blood Count 6.9 10^3/ul (3.5-10.8)
--- NOTE | 2017-03-18 08:01 | RAD ---
INDICATION: Chest pain. Short of breath. Evaluate for pulmonary embolus. COMPARISON: Chest x-ray March 17, 2017; CT chest October 29, 2016 TECHNIQUE: Axial source images were obtained from the thoracic inlet to the hemidiaphragms following administration of [address] angiographic technique was utilized. Coronal and sagittal reconstructed images were acquired. CHEST FINDINGS: Neck/thyroid: The visualized neck to include the thyroid appear normal. Chest wall: There are no acute abnormalities of the bony thorax or chest wall. There is no supraclavicular, infraclavicular, or axillary lymphadenopathy. Lungs : There are no pulmonary parenchymal masses or infiltrates. The pulmonary interstitium appears normal. There are no endobronchial lesions. Cardiomediastinal structures: There is no CT evidence of acute pulmonary embolic disease. The central pulmonary arteries are prominent, unchanged. Correlate with clinical suspicion of pulmonary trauma hypertension. The heart is normal in size. There is no pericardial effusion. There is no evidence of aortic aneurysm or dissection. There is no mediastinal or hilar adenopathy. The esophagus appears normal. Pleura : There are no pleural-based masses or effusions. Other: None. IMPRESSION: NO CT EVIDENCE OF ACUTE PULMONARY EMBOLIC DISEASE. LUNGS CLEAR.
[2017-03-18] MEDS: Albuterol 2.5 MG/3 ML NEB.SOL* (0.083%) INH SCH ×3 (08:27→19:50)
[2017-03-18] MEDS: Tiotropium CAP.INH* CAP.INH/18 MCG (USE ORDER SET !) INH SCH (08:29)
[2017-03-18] MEDS: Mometasone/Formoter 200/5 MDI INH SCH ×2 (08:30→19:52)
[2017-03-18] MEDS ORDERED: Spiriva Inhaler DEVICE* 1 EACH DEVICE SCH (09:00)
[2017-03-18] MEDS ORDERED: Omeprazole CAP* 20 MG PO SCH (09:00)
[2017-03-18] MEDS: AMBRISENTAN 10 MG PO SCH (09:12)
[2017-03-18] MEDS: ETRAVIRINE 200 MG PO SCH ×2 (09:13→21:02)
[2017-03-18] MEDS: DARUNAVIR 600 MG PO SCH ×2 (09:13→21:02)
[2017-03-18] MEDS: Docusate CAP* 100 MG PO SCH ×2 (09:13→20:47)
[2017-03-18] MEDS: RALTEGRAVIR 400 MG PO SCH ×2 (09:20→21:03)
[2017-03-18] MEDS: Sulfamethox/Trimethoprim DS 800/160* TAB PO SCH ×2 (10:39→21:01)
--- NOTE | 2017-03-18 12:02 | ECHO ---
Patient: SALLY OLIVO [facility] Rec#: [id number] : 1970 Date: 03/18/2017 Age: 46y Height: 160.02 cm / 63.0 in Weight: 56.7 kg / 125.0 lbs Sex: F BSA: 1.58 Room#: 410 Admit Date#: 03/18/2017 Type: Inpatient Referring: Yoni Garcia MD Reading: Keara Reyna MD Territory Sales Manager: Nivia Boyce RDCS,RDMS CC: Ольга Childress MD Transthoracic Echocardiogram Indication: SOB, PHTN BP: 104/66 HR: 78 Rhythm: NSR Findings History: PHTN, HTN, SOB Technical Comments: The study quality is good. Completed 1130 Left Ventricle: The left ventricular chamber size is normal. Mild concentric left ventricular hypertrophy is observed. Global left ventricular wall motion and contractility are within normal limits. The estimated ejection fraction is 60-65%. There is septal flattening of the interventricular septum consistent with right ventricular volume or pressure overload. The left ventricular diastolic filling pattern is consistent with pseudonormalization. Left Atrium: The left atrium is mild to moderately dilated. Right Ventricle: The right ventricle is mildly dilated. The right ventricular global systolic function is mildly to moderately reduced. Right Atrium: The right atrium is mildly dilated. Aortic Valve: The aortic valve is trileaflet. There is no evidence of aortic valve thickening. Systolic excursion of the aortic valve is normal. There is no evidence of aortic regurgitation. There is no evidence of aortic stenosis. Mitral Valve: The mitral valve leaflets are mildly thickened. There is mild to moderate mitral regurgitation. The mitral regurgitant jet is laterally directed. There is no evidence of mitral stenosis. Tricuspid Valve: The tricuspid valve leaflets are normal. There is moderate tricuspid regurgitation. The tricuspid regurgitant jet is directed toward the septum. The right ventricular systolic pressure is estimated at 89 mmHg. There is evidence of severe pulmonary hypertension. Pulmonic Valve: The pulmonic valve appears normal. There is mild pulmonic regurgitation. Pericardium: There is no significant pericardial effusion. Aorta: The aortic root appears normal. There is no dilatation of the aortic arch. Pulmonary Artery: The main pulmonary artery is moderately dilated. Venous: The inferior vena cava is dilated. There is an approximate 50% respiratory change in the inferior vena cava dimension. Conclusions Mild concentric left ventricular hypertrophy is observed. Global left ventricular wall motion and contractility are within normal limits. The estimated ejection fraction is 60-65%. The left ventricular diastolic filling pattern is consistent with pseudonormalization. The right ventricle is mildly dilated. The right ventricular global systolic function is mildly to moderately reduced. There is mild to moderate mitral regurgitation. There is moderate tricuspid regurgitation. There is evidence of severe pulmonary hypertension estimated at 89 mmHg. Compared with prior study of 01/21/16, RV hypokinesis is new, MR is stable, TR previously moderate to severe and PA pressure previously 95-100 mmHg. Measurements Name Value Normal Range RVIDd (AP) 2D 2.8 cm (0.9 - 2.6) RVDdMajor (2D) 3.6 cm (2.2 - 4.4) RAd ISD 4CH 5.1 cm (3.4 - 4.9) RA (A4C)W 4.6 cm (2.9 - 4.6) IVSd (2D) 1.2 cm (0.6 - 1) LVPWd (2D) 1.1 cm (0.6 - 1) LVIDd (2D) 5.1 cm (3.6 - 5.4) LVIDs (2D) 3.7 cm - LV FS (2D) 27 % (25 - 45) Aortic Annulus 2 cm (1.4 - 2.6) Ao root diameter (2D) 2.5 cm (2.1 - 3.5) Ascending Ao 2.9 cm (2.1 - 3.4) Aortic arch 2.5 cm (1.8 - 3.4) LA dimension (AP) 2D 4.4 cm (2.3 - 3.8) LAd ISD 4CH 5.5 cm (2.9 - 5.3) LA ISD 4CH W 4.3 cm (2.5 - 4.5) Name Value Normal Range LA ESV SP 4CH (A/L) 52.75 ml - LA ESV SP 2CH (A/L) 51.86 ml - LA ESV BP (A/L) 55.85 ml - LA ESV BP (A/L) index 35 ml/m2 - LA ESV SP 4CH (MOD) 48.54 ml - LA ESV SP 2CH (MOD) 48.86 ml - Name Value Normal Range MV E-wave Vmax 0.8 m/sec - MV deceleration time 175 msec - MV A-wave Vmax 0.4 m/sec - MV E:A ratio 2 ratio - P. vein S-wave Vmax 0.7 m/sec - P. vein D-wave Vmax 0.6 m/sec - P. vein S:D Vmax ratio 1.1 ratio - P. vein A-wave duration 44.4 msec - LV lateral e' Vmax 0.08 m/sec - LV E:e' lateral ratio 10 ratio - Name Value Normal Range AV Vmax 1.4 m/sec - AV VTI 30.1 cm - AV peak gradient 8 mmHg - AV mean gradient 4 mmHg - LVOT Vmax 1 m/sec - LVOT VTI 22.6 cm - LVOT peak gradient 4 mmHg - LVOT mean gradient 2.4 mmHg - FILEMON Vmax 0.8 m/sec - Name Value Normal Range MR Vmax 5.1 m/sec - MR VTI 177 cm - MR volume (PISA) 31 ml - MR flow (PISA) 75.7 ml/sec - MR ERO 1.7 cm2 - MR PISA radius 0.6 cm - MR alias Vmax 39 cm/sec - Name Value Normal Range TR Vmax 4.3 m/sec - TR peak gradient 74 mmHg - RAP 15 mmHg - RVSP 89 mmHg - IVC diameter 2.2 cm - Name Value Normal Range PV Vmax 0.7 m/sec - PV peak gradient 2 mmHg -
[2017-03-18] MEDS: oxyCODONE/Acetamin 5/325 MG* TAB PO PRN ×2 (13:23→18:02)
--- NOTE | 2017-03-18 18:32 | PN ---
Subjective Date of Service: 03/18/17 Interval History: Pt feels better, but still wheezing Objective Active Medications: Acetaminophen (Tylenol Tab*) 650 mg PO Q6H PRN PRN Reason: FEVER/PAIN Last Admin: 03/18/17 16:53 Dose: 650 mg Albuterol (Ventolin 2.5 Mg/3 Ml Neb.Christen*) 2.5 mg INH Q2H PRN PRN Reason: SOB/WHEEZING Albuterol (Ventolin 2.5 Mg/3 Ml Neb.Christen*) 2.5 mg INH [id number] AWAKE [facility] Last Admin: 03/18/17 13:27 Dose: 2.5 mg Alprazolam (Xanax Tab*) 1 mg PO TID PRN PRN Reason: ANXIETY Darunavir (Prezista(Nf)) 600 mg PO BID [facility] Last Admin: 03/18/17 09:13 Dose: Not Given Device (Tiotropium Inhaler Device*) 1 each .SEE ORDER .USE w/ SPIRIVA CAPS [facility] Docusate Sodium (Colace Cap*) 200 mg PO BID [facility] Last Admin: 03/18/17 09:13 Dose: Not Given Etravirine (Intelence (Nf)) 200 mg PO BID [facility] Last Admin: 03/18/17 09:13 Dose: Not Given Heparin Sodium (Porcine) (Heparin Vial(*)) 5,000 units SUBCUT Q8HR [facility] Levofloxacin/Dextrose (Levaquin 750 Mg Ivpremix(*)) 750 mg in 150 mls @ 100 mls /hr IVPB Q24H [facility] Sodium Chloride (Ns 0.9% 1000 Ml*) 1,000 mls @ 75 mls/hr IV PER RATE [facility] Last Admin: 03/18/17 04:49 Dose: 75 mls/hr Melatonin (Melatonin (Nf)) 3 mg PO BEDTIME PRN; Protocol PRN Reason: Sleep Methylprednisolone Sodium Succinate (Solu-Medrol 40 Mg) 40 mg IV Q8H [facility] Mometasone Furoate/Formoterol Fumar (Dulera 200/5 Mdi*) 2 puff INH BID [facility] Last Admin: 03/18/17 08:30 Dose: 2 puff Pto:(Ambrisentan [ (Letairis] 10 Mg)) 10 mg PO DAILY [facility] Last Admin: 03/18/17 09:12 Dose: Not Given Omeprazole (Prilosec Cap*) 20 mg PO DAILY@0600 [facility] Last Admin: 03/18/17 06:23 Dose: 20 mg Ondansetron HCl (Zofran Inj*) 4 mg IV Q6H PRN PRN Reason: NAUSEA Oxycodone/Acetaminophen (Percocet 5/325 Tab*) 1 tab PO Q4H PRN PRN Reason: PAIN Last Admin: 03/18/17 18:02 Dose: 1 tab Raltegravir (Isentress*) 400 mg PO BID [facility] PRN Reason: Protocol Last Admin: 03/18/17 09:20 Dose: Not Given Tiotropium [place] (Spiriva Cap.Inh*) 1 cap INH DAILY [facility] Last Admin: 03/18/17 08:29 Dose: 1 cap Trimethoprim/Sulfamethoxazole (Bactrim Ds 800/160 Tab*) 1 tab PO BID [facility] Last Admin: 03/18/17 10:39 Dose: 1 tab Vital Signs 03/18/17 03/18/17 03/18/17 03:00 03:30 04:00 Temperature Pulse Rate 78 82 Respiratory 22 25 19 Rate Blood Pressure 108/63 107/49 108/90 (mmHg) O2 Sat by Pulse 91 90 Oximetry 03/18/17 03/18/17 03/18/17 04:40 06:23 07:23 Temperature 98.1 F Pulse Rate 73 Respiratory 18 18 16 Rate Blood Pressure 104/66 (mmHg) O2 Sat by Pulse 92 Oximetry 03/18/17 03/18/17 03/18/17 07:45 08:00 08:27 Temperature 97.3 F Pulse Rate 79 76 Respiratory 16 16 Rate Blood Pressure 101/58 (mmHg) O2 Sat by Pulse 94 94 Oximetry 03/18/17 03/18/17 03/18/17 10:39 11:39 13:20 Temperature Pulse Rate 84 Respiratory 16 16 14 Rate Blood Pressure (mmHg) O2 Sat by Pulse 96 Oximetry 03/18/17 03/18/17 03/18/17 13:23 15:14 15:23 Temperature 98.2 F Pulse Rate 86 Respiratory 16 18 16 Rate Blood Pressure 126/55 (mmHg) O2 Sat by Pulse 95 Oximetry 03/18/17 18:02 Temperature Pulse Rate Respiratory 16 Rate Blood Pressure (mmHg) O2 Sat by Pulse Oximetry Oxygen Devices in Use Now: None Appearance: 46 yo f in NAD, AAOx3 Eyes: No Scleral Icterus, PERRLA Ears/Nose/Mouth/Throat: NL Teeth, Lips, Gums, Mucous Membranes Moist Neck: NL Appearance and Movements; NL JVP, Trachea Midline Respiratory: Symmetrical Chest Expansion and Respiratory Effort, - - diffuse b/ l lung wheezes with prolonged expiratory phase Cardiovascular: NL Sounds; No Murmurs; No JVD Abdominal: NL Sounds; No Tenderness; No Distention, No Hepatosplenomegaly Lymphatic: No Cervical Adenopathy Extremities: No Edema, No Clubbing, Cyanosis Skin: No Rash or Ulcers, No Nodules or Sclerosis Neurological: Alert and Oriented x 3, NL Muscle Strength and Tone Result Diagrams: 03/18/17 07:06 03/17/17 22:20 Additional Lab and Data: Lab Results 03/17/17 03/17/17 03/17/17 Range/Units 22:20 22:20 22:20 WBC (3.5-10.8) 10^3/ul RBC (4.0-5.4) 10^6/ul Hgb (12.0-16.0) g/dl Hct (35-47) % MCV (80-97) fL MCH (27-31) pg MCHC (31-36) g/dl RDW (10.5-15) % Plt Count (150-450) 10^3/ul MPV (7.4-10.4) um3 Neut % (Auto) (38-83) % Lymph % (Auto) (25-47) % [place] % (Auto) (1-9) % Eos % (Auto) (0-6) % Baso % (Auto) (0-2) % Absolute Neuts (auto) (1.5-7.7) 10^3/ul Absolute Lymphs (auto) (1.0-4.8) 10^3/ul Absolute Monos (auto) (0-0.8) 10^3/ul Absolute Eos (auto) (0-0.6) 10^3/ul Absolute Basos (auto) (0-0.2) 10^3/ul Absolute Nucleated RBC 10^3/ul Nucleated RBC % INR (Anticoag Therapy) 0.82 L (0.89-1.11) APTT 20.5 L (26.0-36.3) seconds Sodium 138 (133-145) mmol/L Potassium 4.0 (3.5-5.0) mmol/L Chloride 108 (101-111) mmol/L Carbon Dioxide 25 (22-32) mmol/L Anion Gap 5 (2-11) mmol/L BUN 17 (6-24) mg/dL Creatinine 0.96 H (0.51-0.95) mg/dL Est GFR ( Amer) 79.8 (>60) Est GFR (Non-Af Amer) 62.0 (>60) BUN/Creatinine Ratio 17.7 (8-20) Glucose 86 (70-100) mg/dL Lactic Acid (0.5-2.0) mmol/L Calcium 8.8 (8.6-10.3) mg/dL Magnesium 2.1 (1.9-2.7) mg/dL Total Bilirubin 0.30 (0.2-1.0) mg/dL AST 15 (13-39) U/L ALT 10 (7-52) U/L Alkaline Phosphatase 51 (34-104) U/L Troponin I 0.00 (<0.04) ng/mL C-Reactive Protein < 1.00 (< 5.00) mg/L B-Natriuretic Peptide 47 ( - 100) pg/mL Total Protein 6.7 (6.4-8.9) g/dL Albumin 3.6 (3.2-5.2) g/dL Globulin 3.1 (2-4) g/dL Albumin/Globulin Ratio 1.2 (1-3) Lipase 36 (11.0-82.0) U/L TSH Pending 03/17/17 03/17/17 Range/Units 22:20 22:20 WBC 9.3 (3.5-10.8) 10^3/ul RBC 4.41 (4.0-5.4) 10^6/ul Hgb 11.5 L (12.0-16.0) g/dl Hct 35 (35-47) % MCV 79 L (80-97) fL MCH 26 L (27-31) pg MCHC 33 (31-36) g/dl RDW 19 H (10.5-15) % Plt Count 252 (150-450) 10^3/ul MPV 8 (7.4-10.4) um3 Neut % (Auto) 46.8 (38-83) % Lymph % (Auto) 44.6 (25-47) % [place] % (Auto) 6.6 (1-9) % Eos % (Auto) 1.1 (0-6) % Baso % (Auto) 0.9 (0-2) % Absolute Neuts (auto) 4.3 (1.5-7.7) 10^3/ul Absolute Lymphs (auto) 4.1 (1.0-4.8) 10^3/ul Absolute Monos (auto) 0.6 (0-0.8) 10^3/ul Absolute Eos (auto) 0.1 (0-0.6) 10^3/ul Absolute Basos (auto) 0.1 (0-0.2) 10^3/ul Absolute Nucleated RBC 0 10^3/ul Nucleated RBC % 0 INR (Anticoag Therapy) (0.89-1.11) APTT (26.0-36.3) seconds Sodium (133-145) mmol/L Potassium (3.5-5.0) mmol/L Chloride (101-111) mmol/L Carbon Dioxide (22-32) mmol/L Anion Gap (2-11) mmol/L BUN (6-24) mg/dL Creatinine (0.51-0.95) mg/dL Est GFR ( Amer) (>60) Est GFR (Non-Af Amer) (>60) BUN/Creatinine Ratio (8-20) Glucose (70-100) mg/dL Lactic Acid 0.8 (0.5-2.0) mmol/L Calcium (8.6-10.3) mg/dL Magnesium (1.9-2.7) mg/dL Total Bilirubin (0.2-1.0) mg/dL AST (13-39) U/L ALT (7-52) U/L Alkaline Phosphatase (34-104) U/L Troponin I (<0.04) ng/mL C-Reactive Protein (< 5.00) mg/L B-Natriuretic Peptide ( - 100) pg/mL Total Protein (6.4-8.9) g/dL Albumin (3.2-5.2) g/dL Globulin (2-4) g/dL Albumin/Globulin Ratio (1-3) Lipase (11.0-82.0) U/L TSH Microbiology and Other Data: Microbiology 03/18/17 04:45 Influenza Types A,B Antigen (CHERYL) - Final Nasal Specimen received for Influenza A/B Molecular testing Assess/Plan/Problems-Billing Assessment: 46 yo f with h/o HIV, sever pulm HTN, hepatitis C presents with bronchitis - Patient Problems (1) Bronchitis Comment: cont Bactrim with significant bronchospasm, cont Solu Medrol and nebs (2) HIV (human immunodeficiency virus infection) Comment: - Continue Darunavir, Etravirine and Raltegravir. checking CD4 (3) Pulmonary hypertension Comment: - Continue Letairis. (4) TSH elevation Comment: check fT4, fT3 (5) DVT prophylaxis Comment: - SQ heparin. Status and Disposition: inpatient
[2017-03-18] MEDS ORDERED: Levofloxacin 750 MG IVPREMIX(* 750 MG/150 ML BAG IVPB SCH (23:00)
[2017-03-19] MEDS: Albuterol 2.5 MG/3 ML NEB.SOL* (0.083%) INH SCH ×2 (01:23→09:03)
[2017-03-19] MEDS: Omeprazole CAP* 20 MG PO SCH (05:38)
[2017-03-19] MEDS ORDERED: Heparin VIAL(*) 5000 UNITS/ML VIAL (FIVE THOUSAND) SUBCUT SCH (06:00)
[2017-03-19] MEDS ORDERED: methylPREDNISolone SOD 40 MG* 1 ML VIAL IV SCH (06:00)
[2017-03-19 06:20] LABS: Free T4 0.85 ng/dL (0.61-1.12)
[2017-03-19] MEDS: Sulfamethox/Trimethoprim DS 800/160* TAB PO SCH (08:17)
[2017-03-19] MEDS: AMBRISENTAN 10 MG PO SCH (08:18)
[2017-03-19] MEDS: DARUNAVIR 600 MG PO SCH (08:18)
[2017-03-19] MEDS: ETRAVIRINE 200 MG PO SCH (08:18)
[2017-03-19] MEDS: RALTEGRAVIR 400 MG PO SCH (08:18)
[2017-03-19] MEDS: Docusate CAP* 100 MG PO SCH (08:51)
[2017-03-19] MEDS: Mometasone/Formoter 200/5 MDI INH SCH (09:04)
[2017-03-19] MEDS: Tiotropium CAP.INH* CAP.INH/18 MCG (USE ORDER SET !) INH SCH (09:04)
[2017-03-19 12:16] VITALS: BP 119/70
--- NOTE | 2017-03-19 17:01 | DS ---
CC: Ольга Childress MD* DISCHARGE SUMMARY: DATE OF ADMISSION: 03/18/17 DATE OF DISCHARGE: 03/19/17 PRIMARY CARE PROVIDER: Ольга Childress MD DISCHARGE DIAGNOSIS: Spastic bronchitis with possibility of chronic obstructive pulmonary disease exacerbation. SECONDARY DIAGNOSES: Unchanged from admission and included past medical history of: 1. History of being HIV positive. 2. History of hepatitis C. 3. History of pulmonary hypertension. 4. History of shingles. 5. Hypertension. MEDICATIONS ON DISCHARGE: Include: 1. Bactrim DS 1 tablet p.o. b.i.d. for 7 days total. 2. Prednisone 20 mg tablet taper, 60 mg for 3 days, then 40 mg daily for 2 days , then 20 mg daily for 2 days, then 10 mg daily for 2 days and then stop. 3. Spiriva 1 inhalation daily. 4. Dulera 2 puffs inhalation b.i.d. 5. Xanax 1 mg 3 times a day p.r.n. 6. Letairis 10 mg daily. 7. Darunavir 600 mg b.i.d. 8. Etravirine 200 mg b.i.d. 9. Omeprazole 20 mg daily. 10. Raltegravir 400 mg b.i.d. LABORATORY DATA: Performed during the hospital stay included: On 03/18/17, white blood cell count of 2.9, hemoglobin of 10.4, hematocrit of 31 , and platelets of 224,000. The patient's TSH was slightly higher at admission on 7.8, but the patient's free T4 was 0.85 and free T3 was 3. Transthoracic echocardiogram obtained on 03/18/17, showed EF of 60% to 65% with global left ventricular wall motion and contractility within normal limits with left ventricular diastolic filling pattern consistent with pseudonormalization. The right ventricle was mildly dilated and right ventricular global systolic function mild to moderately reduced. There was mild to moderate mitral regurgitation and moderate tricuspid regurgitation and evidence of severe pulmonary hypertension estimated at 89 mmHg. Compared with prior echocardiogram from January 2016, the RV hypokinesis is new, MR is stable, TR previously moderate to severe and PA pressure of previously at 95 to 100 mmHg. HOSPITALIZATION COURSE: Saba Jackson is a 46-year-old female with history of HIV positive on antiretroviral treatment as well as history of severe pulmonary hypertension who presented to the hospital complaining of coughing and wheezing and shortness of breath. She was treated as outpatient with prednisone and outpatient antibiotic without any improvement. She was placed on observation at our facility, treated with p.o. Bactrim and intravenous Solu-Medrol with good response. Within the 48 hours of her hospital stay, she was able to go home on room air. Her wheezing markedly improved. At this point, the suspicion is that the patient may have an underlying COPD and COPD exacerbation versus just purely spastic bronchitis. Nevertheless, the patient is going to be continued on Spiriva and Dulera at this point and recommended for the patient to have outpatient pulmonology evaluation in regards to that. The patient's at home medications are continued at the same doses at discharge apart from that the ibuprofen was discontinued due to the patient being on current prednisone taper. The patient is also going to be placed on Bactrim treatment for another 7 days. Please note that CD4 count is pending at the time of dictation. PHYSICAL EXAMINATION: At the time of discharge, blood pressure is 104/63, heart rate of 75 and regular, respiratory rate is 14, oxygen saturation 96% on room air, and temperature 98.0. General: This is a very pleasant 46-year-old female, who is in no acute distress. Alert, awake, and oriented x3. HEENT: Head atraumatic, normocephalic. Eyes, pupils are equal and reactive to light and accommodation. Oropharynx clear. Mucosa moist. Neck: Supple. No JVD. No bruits bilaterally. Cardiovascular: Regular rate and rhythm. No murmurs. Respiratory: Minimal wheezes at bilateral bases, otherwise clear. Abdomen: Soft and nontender. Bowel sounds present in all 4 quadrants. Extremities: There is no edema, pulses are +2 bilaterally. No clubbing or cyanosis. Neurologic evaluation: Speech clear. Cranial nerves II throughout XII are grossly intact. Motor strength is 5/5 bilaterally. At discharge, the patient recommended to follow with Dr. Childress in approximately 1 to 2 weeks. Please note that due to the patient's elevation of TSH, it is recommended for the patient to have a TSH repeated in approximately 1 to 2 months. Please note that this is a short summary of patient's hospitalization. Please refer to further medical records for details. [id number]/[facility] #: [id number] [facility]
--- NOTE | 2017-03-21 05:46 | ED ---
Anu Quintana Alfonso, scribed for Ian Summers MD on 03/17/17 at 2256 . Complex/Multi-Sys Presentation - HPI Summary HPI Summary: This patient is a 46 year old F presenting to [facility] accompanied by with a chief complaint of chest congestion since 4 days ago, worse since earlier today. The patient rates the pain 8/10 in severity. Symptoms aggravated by deep breaths. Symptoms alleviated by nothing. Patient reports productive cough, SOB, nausea, and diarrhea. Patient denies fever, and calf swelling. She is currently on cefdinir 300 mg BID. PMHx includes HIV and HTN. - History Of Current Complaint Chief Complaint: EDChestPainROMI Time Seen by Provider: 03/17/17 22:43 Hx Obtained From: Family/Door Installer Onset/Duration: Sudden Onset, Lasting Days - 4, Still Present Timing: Constant Severity Currently: Severe - 8/10 Aggravating Factor(s): deep breath Alleviating Factor(s): nothing Associated Signs And Symptoms: Positive: Other - productive cough, SOB, nausea, and diarrhea. Patient denies fever, and calf swelling - Allergies/Home Medications Allergies/Adverse Reactions: Allergies Allergy/AdvReac Type Severity Reaction Status Date / Time Adhesive Tape Allergy Rash Verified 02/10/16 09:59 Efavirenz [From Sustiva] Allergy Rash Verified 02/10/16 09:59 Piperacillin [From Zosyn] Allergy Shakes Verified 03/18/17 02:50 Ritonavir Allergy Rash Verified 02/10/16 09:59 [From Norvir Capsule] Tazobactam [From Zosyn] Allergy Shakes Verified 03/18/17 02:50 Home Medications: Home Medications Omeprazole CAP* [Prilosec CAP* 20 MG] 20 mg PO DAILY 03/18/17 [History Confirmed 03/18/17] PMH/Surg Hx/FS Hx/Imm Hx Endocrine/Hematology History: Denies: Hx Diabetes Cardiovascular History: Reports: Hx Hypertension - PULMONARY HTN GI History: Reports: Other GI Disorders - PT REPORTS CHRONIC N/V EVER SINCE HIV DIAGNOSIS History: Denies: Hx Renal Disease Sensory History: Reports: Hx Contacts or Glasses - LEFT AT HOME Opthamlomology History: Reports: Hx Contacts or Glasses - LEFT AT HOME Psychiatric History: Reports: Hx Anxiety - Surgical History Surgery Procedure, Year, and Place: DEVIATED SEPTUM REPAIR NOVEMBER 2015. HYSTERECTOMY 2O+YRS AGO Infectious Disease History: Reports: Hx Hepatitis - HEP C, Hx Human Immunodeficiency Virus (HIV) Denies: Traveled Outside the [place] in Last 30 Days - Family History Known Family History: Positive: Hypertension - Social History Alcohol Use: Occasionally Hx Substance Use: No Substance Use Type: Reports: None Hx Tobacco Use: Yes Smoking Status (MU): Former Smoker Review of Systems Negative: Fever Positive: Shortness Of Breath, Cough, Other - chest congestion Positive: Diarrhea, Nausea Negative: Edema All Other Systems Reviewed And Are Negative: Yes Physical Exam - Summary Physical Exam Summary: General: well-appearing, mild pain distress Skin: warm, color reflects adequate perfusion, dry Head: normal Eyes: EOMI, NEPTALI ENT: normal Neck: supple, nontender Respiratory: Bilateral wheezing and rhonchi, breath sounds present, mild respiratory distress. Cardiovascular: RRR Abdomen: soft, nontender Bowel: present Musculoskeletal: normal, strength/ROM intact, no pedal edema Neurological: normal, sensory/motor intact, A&O x3 Psychological: affect/mood appropriate Triage Information Reviewed: Yes Vital Signs On Initial Exam: Initial Vitals Resp 27 03/17/17 21:59 Vital Signs Reviewed: Yes - Alex Coma Scale Coma Scale Total: 15 Diagnostics - Vital Signs Vital Signs Pulse Resp BP Pulse Ox 03/17/17 22:30 74 17 98/64 91 03/17/17 22:00 77 23 95/62 93 03/17/17 21:59 27 - Laboratory Lab Results: Lab Results 03/17/17 03/17/17 03/17/17 Range/Units 22:20 22:20 22:20 WBC (3.5-10.8) 10^3/ul RBC (4.0-5.4) 10^6/ul Hgb (12.0-16.0) g/dl Hct (35-47) % MCV (80-97) fL MCH (27-31) pg MCHC (31-36) g/dl RDW (10.5-15) % Plt Count (150-450) 10^3/ul MPV (7.4-10.4) um3 Neut % (Auto) (38-83) % Lymph % (Auto) (25-47) % [place] % (Auto) (1-9) % Eos % (Auto) (0-6) % Baso % (Auto) (0-2) % Absolute Neuts (auto) (1.5-7.7) 10^3/ul Absolute Lymphs (auto) (1.0-4.8) 10^3/ul Absolute Monos (auto) (0-0.8) 10^3/ul Absolute Eos (auto) (0-0.6) 10^3/ul Absolute Basos (auto) (0-0.2) 10^3/ul Absolute Nucleated RBC 10^3/ul Nucleated RBC % INR (Anticoag Therapy) 0.82 L (0.89-1.11) APTT 20.5 L (26.0-36.3) seconds Sodium 138 (133-145) mmol/L Potassium 4.0 (3.5-5.0) mmol/L Chloride 108 (101-111) mmol/L Carbon Dioxide 25 (22-32) mmol/L Anion Gap 5 (2-11) mmol/L BUN 17 (6-24) mg/dL Creatinine 0.96 H (0.51-0.95) mg/dL Est GFR ( Amer) 79.8 (>60) Est GFR (Non-Af Amer) 62.0 (>60) BUN/Creatinine Ratio 17.7 (8-20) Glucose 86 (70-100) mg/dL Lactic Acid (0.5-2.0) mmol/L Calcium 8.8 (8.6-10.3) mg/dL Magnesium 2.1 (1.9-2.7) mg/dL Total Bilirubin 0.30 (0.2-1.0) mg/dL AST 15 (13-39) U/L ALT 10 (7-52) U/L Alkaline Phosphatase 51 (34-104) U/L Troponin I 0.00 (<0.04) ng/mL C-Reactive Protein < 1.00 (< 5.00) mg/L B-Natriuretic Peptide 47 ( - 100) pg/mL Total Protein 6.7 (6.4-8.9) g/dL Albumin 3.6 (3.2-5.2) g/dL Globulin 3.1 (2-4) g/dL Albumin/Globulin Ratio 1.2 (1-3) Lipase 36 (11.0-82.0) U/L TSH Pending 03/17/17 03/17/17 Range/Units 22:20 22:20 WBC 9.3 (3.5-10.8) 10^3/ul RBC 4.41 (4.0-5.4) 10^6/ul Hgb 11.5 L (12.0-16.0) g/dl Hct 35 (35-47) % MCV 79 L (80-97) fL MCH 26 L (27-31) pg MCHC 33 (31-36) g/dl RDW 19 H (10.5-15) % Plt Count 252 (150-450) 10^3/ul MPV 8 (7.4-10.4) um3 Neut % (Auto) 46.8 (38-83) % Lymph % (Auto) 44.6 (25-47) % [place] % (Auto) 6.6 (1-9) % Eos % (Auto) 1.1 (0-6) % Baso % (Auto) 0.9 (0-2) % Absolute Neuts (auto) 4.3 (1.5-7.7) 10^3/ul Absolute Lymphs (auto) 4.1 (1.0-4.8) 10^3/ul Absolute Monos (auto) 0.6 (0-0.8) 10^3/ul Absolute Eos (auto) 0.1 (0-0.6) 10^3/ul Absolute Basos (auto) 0.1 (0-0.2) 10^3/ul Absolute Nucleated RBC 0 10^3/ul Nucleated RBC % 0 INR (Anticoag Therapy) (0.89-1.11) APTT (26.0-36.3) seconds Sodium (133-145) mmol/L Potassium (3.5-5.0) mmol/L Chloride (101-111) mmol/L Carbon Dioxide (22-32) mmol/L Anion Gap (2-11) mmol/L BUN (6-24) mg/dL Creatinine (0.51-0.95) mg/dL Est GFR ( Amer) (>60) Est GFR (Non-Af Amer) (>60) BUN/Creatinine Ratio (8-20) Glucose (70-100) mg/dL Lactic Acid 0.8 (0.5-2.0) mmol/L Calcium (8.6-10.3) mg/dL Magnesium (1.9-2.7) mg/dL Total Bilirubin (0.2-1.0) mg/dL AST (13-39) U/L ALT (7-52) U/L Alkaline Phosphatase (34-104) U/L Troponin I (<0.04) ng/mL C-Reactive Protein (< 5.00) mg/L B-Natriuretic Peptide ( - 100) pg/mL Total Protein (6.4-8.9) g/dL Albumin (3.2-5.2) g/dL Globulin (2-4) g/dL Albumin/Globulin Ratio (1-3) Lipase (11.0-82.0) U/L TSH Result Diagrams: 03/18/17 07:06 03/17/17 22:20 Lab Statement: Any lab studies that have been ordered have been reviewed, and results considered in the medical decision making process. - Radiology CXR Radiology Interpretation Completed By: ED Physician - right lower lobe pneumonia - CT CTA Chest CT Interpretation Completed By: Radiologist - No PE. No aortic dissection or aneurysm. No pneumonia or plural effusions. Enlarged central pulmonary arteries , which can be seen in pulmonary HTN. ED physician has reviewed this radiology report and agrees. - EKG 2141 Cardiac Rate: NL - BPM 79 EKG Rhythm: Sinus Rhythm ST Segment: Normal Ectopy: None EKG Interpretation: Flipped T-wave in V2 Complex Multi-Symp Course/Dx Course Of Treatment: FAILED OUT PATIENT TREATMENT. ADMIT HOSPITALIST. - Diagnoses Provider Diagnoses: Bronchitis - Physician Notifications Discussed Care Of Patient With: Yoni Garcia Time Discussed With Above Provider: 00:30 Instructed by Provider To: Other - Consulted Dr. Garcia (hospitalist) who will see the patient in the ED. Discharge - Discharge Plan Condition: Improved Disposition: ADMITTED TO [facility] documentation as recorded by the Anu lock Alfonso accurately reflects the service I personally performed and the decisions made by me, Ian Summers MD.
[2017-03-23 09:56] LABS: % CD3 55 % (58-86); % CD4 16 % (32-64); % CD8 37 % (13-40)
== END 2017-03-19 11:55 | disposition home or self-care (01) ==
LOC: ED 21:31 → INTOOBSV 03-18 02:49 → MED 03-18 02:49
PROVIDERS: ADMIT Hospitalist; ATTEND Internal Medicine
DX: J40 Bronchitis, not specified as acute or chronic (principal); B20 Human immunodeficiency virus [HIV] disease; I27.2 Other secondary pulmonary hypertension; E11.9 Type 2 diabetes mellitus without complications; B02.9 Zoster without complications; B19.20 Unspecified viral hepatitis C without hepatic coma; R06.02 Shortness of breath; R94.6 Abnormal results of thyroid function studies; I51.7 Cardiomegaly; Z87.891 Personal history of nicotine dependence; Z79.899 Other long term (current) drug therapy; Z88.0 Allergy status to penicillin; Z88.8 Allergy status to other drugs, medicaments and biological substances
CPT/HCPCS: 36415; 71010; 71275; 80053; 81003; 81015; 83605; 83690; 83735; 83880; 84439; 84443; 84481; 84484; 85025; 85027; 85610; 85730; 86140; 86359; 86360; 87040; 87086; 87502; 93005; 93306; 94640; 94760; 96365; 96366; 96375; 96376; 99284; A9270-GY; G0378; J1644; J1885; J2270; J2405; J2920; J2930; J3010; Q9967

== ENCOUNTER 2017-09-18 19:29 | Emergency (ER) | payer BC ==
[2017-09-18] MEDS ORDERED: Albuterol/Ipratropium NEB.SOL* Albuterol 2.5 MG/Ipratropium 0.5 MG 3 ML INH ONE (20:03)
[2017-09-18] MEDS ORDERED: HYDROcodone/ACETAMIN 5-325 MG* 1 TAB PO ONE (20:04)
[2017-09-18 20:14] LABS: ABS Basophils 0.1 10^3/ul (0-0.2); ABS Eosinophils 0.1 10^3/ul (0-0.6); ABS Lymphocytes 3.4 10^3/ul (1.0-4.8); ABS Monocytes 0.6 10^3/ul (0-0.8); ABS Neutrophils 4.5 10^3/ul (1.5-7.7); ABS Nucleated RBC 0 10^3/ul; Eosinophil % 1.7 % (0-6); Hematocrit 38 % (35-47); Hemoglobin 13.1 g/dl (12.0-16.0); Mean Corpuscular HGB Conc 35 g/dl (31-36); Mean Corpuscular Hemoglobin 30 pg (27-31); Mean Corpuscular Volume 87 fL (80-97); Mean Platelet Volume 8.1 um3 (7.4-10.4); Nucleated Red Blood Cells % 0; Platelet Count 203 10^3/ul (150-450); Red Blood Count 4.34 10^6/ul (4.0-5.4); Red Cell Distribution Width 15 % (10.5-15); White Blood Count 8.8 10^3/ul (3.5-10.8)
[2017-09-18] MEDS ORDERED: Morphine INJ* 4 MG/ML 1 ML SYRINGE (NEW SYRINGE VERSION) IV ONE (20:19)
[2017-09-18] MEDS ORDERED: Morphine INJ* 2 MG/ML 1 ML CARPUJECT ONE (20:26)
--- NOTE | 2017-09-18 20:27 | RAD ---
INDICATION: Left chest pain and wheezing COMPARISON: Measures a comparison chest x-rays dated March 17, 2017 TECHNIQUE: Single AP portable view of the chest was obtained. FINDINGS: Image quality is compromised due to the relative inferiority of a portable chest x-ray. The heart and mediastinum exhibit normal size and contour. The lungs are grossly clear. There is no evidence of a large pleural effusion. Visualized bones are normal for the patient's age. IMPRESSION: No radiographic evidence for acute cardiopulmonary abnormality on this portable chest x-ray.
[2017-09-18 20:39] LABS: EGFR Non-African American 68.3 (>60)
[2017-09-18 20:45] LABS: INR 0.86 (0.77-1.02)
[2017-09-18] MEDS ORDERED: methylPREDNISolone 125 MG* 2 ML VIAL IV ONE (21:28)
[2017-09-18] MEDS ORDERED: HYDROmorphone INJ* 2 MG/ML CARPUJECT SYRINGE IV SLOW PU ONE (21:29)
[2017-09-18 22:16] LABS: Urine Appearance Clear; Urine Blood Negative (Negative); Urine Color Colorless; Urine Ketones Negative (Negative); Urine Protein Negative (Negative); Urine Specific Gravity 1.002 (1.010-1.030); Urine Urobilinogen Negative (Negative)
--- NOTE | 2017-09-18 22:42 | ED ---
Amaury Quintana Stephanie, scribed for Lori Mccormick MD on 09/18/17 at 2037 . HPI Chest Pain - HPI Summary HPI Summary: The pt is a 47 y/o F presenting to the ED with c/o CP that began on 09/15/17. The CP is located beneath the L breast and is described as a ripping pain. Symptoms include cough, nasal congestion and green nasal discharge. The pt denies LE pain and fever. Pt has a hx of pulmonary HTN, followed by Dr. Castorena at [facility]. The pt states she completed a Z-pack last week started it on 09/08/17, prescribed by Dr. Castorena after she saw him in the office on 09/04/17, with minimal relief of chest and sinus symptoms. She is HIV positive for 20 yrs, followed by Dr. Hernandez at [facility]. She does not know her CD4 counts, but states she is due to change her antiretrovirals. 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 Pt medications include Letairis qd for pulmonary HTN, Isentress BID, Prezista BID, Intelence BID for HIV and Xanax 1 mg prn. Pt does not regularly use inhalers. - History of Current Complaint Chief Complaint: EDChestPainROMI Time Seen by Provider: 09/18/17 19:42 Hx Obtained From: Patient, Family/Compliance Analyst - Onset/Duration: Started Days Ago - 3, Still Present Timing: Constant Initial Severity: Moderate Current Severity: Moderate Pain Intensity: 6 Pain Scale Used: 0-10 Numeric Chest Pain Location: Left Lateral Chest Pain Radiates: No Character: Sharp/Stabbing, Other: - ripping pain Aggravating Factor(s): Nothing Alleviating Factor(s): Nothing Associated Signs and Symptoms: Positive: Chest Pain, Cough, Nasal Congestion - green mucus, Sinus Discomfrot, Other: - Negative: LE pain. Negative: Fever, Calf Pain/Swelling - Additional Pertinent History Primary Care Physician: [id number] - Allergy/Home Medications Allergies/Adverse Reactions: Allergies Allergy/AdvReac Type Severity Reaction Status Date / Time Adhesive Tape Allergy Rash Verified 09/18/17 19:35 efavirenz Allergy Rash Verified 09/18/17 20:02 piperacillin [From Zosyn] Allergy Rash Verified 09/18/17 20:01 ritonavir [From Norvir] Allergy Rash Verified 09/18/17 20:03 tazobactam [From Zosyn] Allergy Rash Verified 09/18/17 20:01 Home Medications: Home Medications ALPRAZolam TAB* [Xanax TAB*] 1 mg PO BID 09/18/17 [History Confirmed 09/18/17] Ambrisentan [Letairis] 10 mg PO DAILY 09/18/17 [History Confirmed 09/18/17] Biktarvy 1 tab PO DAILY 09/18/17 [History Confirmed 09/18/17] PMH/Surg Hx/FS Hx/Imm Hx Previously Healthy: No - HIV positive Endocrine/Hematology History: Denies: Hx Diabetes, Hx Anemia Cardiovascular History: Reports: Hx Hypertension - PULMONARY HTN Respiratory History: Denies: Hx Asthma, Hx Chronic Obstructive Pulmonary Disease (COPD) - pt has pulm htn History: Denies: Hx Dialysis, Hx Renal Disease Sensory History: Reports: Hx Contacts or Glasses - LEFT AT HOME Denies: Hx Hearing Aid Opthamlomology History: Reports: Hx Contacts or Glasses - LEFT AT HOME Psychiatric History: Reports: Hx Anxiety - Surgical History Surgery Procedure, Year, and Place: DEVIATED SEPTUM REPAIR NOVEMBER 2015. HYSTERECTOMY 2O+YRS AGO Infectious Disease History: Yes Infectious Disease History: Reports: Hx Hepatitis - HEP C, Hx Human Immunodeficiency Virus (HIV), Hx Shingles Denies: Hx Clostridium Difficile, Hx of Known/Suspected MRSA, Hx Tuberculosis , Hx Known/Suspected VRSA, History Other Infectious Disease, Traveled Outside the [place] in Last 30 Days - Family History Known Family History: Positive: Hypertension - Social History Occupation: Unemployed Lives: With Family Alcohol Use: Occasionally Hx Substance Use: No Substance Use Type: Reports: None Substance Use Comment - Amount & Last Used: Medical marijuana Hx Tobacco Use: Yes Smoking Status (MU): Former Smoker Type: Cigarettes Have You Smoked in the Last Year: No Review of Systems Negative: Fever Positive: Nasal Discharge - green discharge Positive: Chest Pain Positive: Cough Gastrointestinal: Negative Positive: Other - Negative: LE pain Skin: Negative Neurological: Negative Psychological: Normal All Other Systems Reviewed And Are Negative: Yes Physical Exam - Summary Physical Exam Summary: Appearance: Ill-appearing, moderate pain distress, Well-nourished Skin: Warm, color reflects adequate perfusion Head: Normal Head/Face inspection Eyes: Conjunctiva clear ENT: Normal inspection Neck: Supple, no nodes, no JVD. Respiratory: Wheezing bilat, expiratory, no respiratory distress Cardio: RRR, No murmur, pulses normal, brisk capillary refill, pain in L lateral chest Abdomen: soft, nontender Bowel sounds: present Musculoskeletal: Strength Intact/ ROM intact. No calf tenderness. No edema. Psychological: Normal Neuro: Alert, muscle tone normal, no focal deficit Triage Information Reviewed: Yes Vital Signs On Initial Exam: Initial Vitals Temp Pulse Resp BP Pulse Ox 96.7 F 81 16 109/64 93 09/18/17 19:30 09/18/17 19:30 09/18/17 19:30 09/18/17 19:30 09/18/17 19:30 Vital Signs Reviewed: Yes Diagnostics - Vital Signs Vital Signs Temp Pulse Resp BP Pulse Ox 09/18/17 19:30 96.7 F 81 16 109/64 93 - Laboratory Lab Results: Lab Results 09/18/17 Range/Units 19:58 WBC 8.8 (3.5-10.8) 10^3/ul RBC 4.34 (4.0-5.4) 10^6/ul Hgb 13.1 (12.0-16.0) g/dl Hct 38 (35-47) % MCV 87 (80-97) fL MCH 30 (27-31) pg MCHC 35 (31-36) g/dl RDW 15 (10.5-15) % Plt Count 203 (150-450) 10^3/ul MPV 8.1 (7.4-10.4) um3 Neut % (Auto) 51.4 (38-83) % Lymph % (Auto) 39.0 (25-47) % [place] % (Auto) 7.3 H (0-7) % Eos % (Auto) 1.7 (0-6) % Baso % (Auto) 0.6 (0-2) % Absolute Neuts (auto) 4.5 (1.5-7.7) 10^3/ul Absolute Lymphs (auto) 3.4 (1.0-4.8) 10^3/ul Absolute Monos (auto) 0.6 (0-0.8) 10^3/ul Absolute Eos (auto) 0.1 (0-0.6) 10^3/ul Absolute Basos (auto) 0.1 (0-0.2) 10^3/ul Absolute Nucleated RBC 0 10^3/ul Nucleated RBC % 0 Result Diagrams: 09/18/17 19:58 09/18/17 19:58 Lab Statement: Any lab studies that have been ordered have been reviewed, and results considered in the medical decision making process. - Radiology CXR Xray Interpretation: No Acute Changes Radiology Interpretation Completed By: Radiologist - No radiographic evidence for acute cardiopulmonary abnormality on this portable chest x-ray. ED physician has reviewed this report. - EKG 19:34 Cardiac Rate: NL EKG Rhythm: Sinus Rhythm - 77 BPM EKG Interpretation: nml AVIVCT, nml QTc, and nml axis, Inverted T waves in V1 and V2 EKG Comparison: No Significant Change - 03/17/17 Re-Evaluation - Re-Evaluation First Eval Re-Evaluation Time: 21:17 Change: Unchanged - The pt is still wheezing and she still has pain. Second Eval Re-Evaluation Time: 21:58 Change: Unchanged - The pt still has CP and is still wheezing. The pt ambulated to the bathroom. ED physician informed the pt that she notified Dr. Garcia for a consult. Chest Pain Course/Dx - Course Course Of Treatment: The pt received duoneb treatment but had no change in wheezes. ED physician provided IV steroids and another nebulizer treatment. The morphine did not relieve her pain, so pt was given dilaudid 1mg IV. CXR is negative, and d dimer, wbc count and other labs, including flu swab are unremarkable. With pt's pulm HTN and immunosuppressed status due to HIV, will consult Dr. Garcia re: possible admission. - Diagnoses Provider Diagnoses: Chest pain, Bronchospasm, Pulmonary HTN, HIV (human immunodeficiency virus infection) - Provider Notifications Discussed Care Of Patient With: Yoni Garcia - Regarding possible admission of the pt. Time Discussed With Above Provider: 21:54 Discharge - Sign-Out/Discharge Documenting (check all that apply): Discharge Signing out patient TO: Yoni Garcia - Pending consult from Dr. Garcia. - Discharge Plan Condition: Stable Disposition: HOME Discharge Disposition Comment: Dr. Garcia will discharge with RX levaquin, steroids, & pain med Patient Education Materials: Bronchospasm (ED) Referrals: Ольга Childress MD [Primary Care Provider] - 2 Days - Billing Disposition and Condition Condition: STABLE Disposition: HOME The documentation as recorded by the Amaury lock Stephanie accurately reflects the service I personally performed and the decisions made by , Lori Mccormick MD.
--- NOTE | 2017-09-18 23:03 | CONSULT ---
Consult Consult: PCP: Mamadou Childress MD Infectious Disease: Dr Hernandez in [place] Date/Time: 09/18/2017 2230 Reason for Consult: SOB, wheeze HPI: Mrs Jackson is a 46YO female HX HIV+ status followed by ID in [place]. She does not know her last CD4 count, but states she is taking her anti-retrovirals as prescribed. She states they are considering changing her regimen. 1 week ago she experienced the onset of sinus congestion for which she has taken azithromycin without improvment. There has been a prominent cough which has become associated with sharp L infra-mammary pain over the last 3 days. Not coughing helps the pain. She has had some mild nausea, but denies emesis, diarrhea, subjective F/C, sweats, palpitations, light-headedness, or other issues. She produces scant phlegm described as greenish. There is no tachycardia , no tachypnea, no oxygen requirement, no elevation of WBCs, no granulocytic shift, and CXR is negative for acute process. PMedHx HIV+ shingles HTN pulmonary HTN, severe hepatitis C PSurgHx hysterectomy SocHx: former smoker quit ~10 years ago, no alcohol or recreational drugs, vapes medical marijuana; full code status FamHx: Mother is alive at 69, healthy. She never met nor knew of her father. Brother: healthy ROS: as above, otherwise reviewed and all were negative vitals: Vital Signs Temp 35.9 C 09/18/17 19:30 Pulse 89 09/18/17 22:00 Resp 19 09/18/17 22:00 BP 119/69 09/18/17 22:00 Pulse Ox 97 09/18/17 22:00 Intake & Output 09/17/17 09/18/17 09/18/17 23:59 11:59 23:59 Weight 65.771 kg Constitutional: NAD, normally developed, well-nourished female HEENM: atraumatic; sclera/conjunctiva: non-icteric/clear; hearing: clinically intact; oropharynx: clear, mucosa moist Neck: soft tissue: no nuchal rigidity; thyroid: normal Pulmonary: mild mid- to end- expiratory wheeze, fair to good aeration, no accessory muscle use, no distress CV: RR/RR, normal S1S2, no carotid bruit, no jugular venous distention, 2+ B DP/ PT, no edema Abdominal: soft, non-distended, non-tender, no rebound/guarding/rigidity, normoactive bowel sounds, no hepatosplenomegaly or masses, no costovertebral angle tenderness Musculoskeletal: general: grossly intact, no palpable tenderness Integumental: normal appearance and texture of exposed skin Psychiatric orientation: AA&O to PPTS affect: calm mood: pleasant eye contact: good content: reliable responses: timely insight: good Testing: Laboratory Results - last 24 hr 09/18/17 09/18/17 09/18/17 19:58 19:58 19:58 WBC RBC Hgb Hct MCV MCH MCHC RDW Plt Count MPV Neut % (Auto) Lymph % (Auto) [place] % (Auto) Eos % (Auto) Baso % (Auto) Absolute Neuts (auto) Absolute Lymphs (auto) Absolute Monos (auto) Absolute Eos (auto) Absolute Basos (auto) Absolute Nucleated RBC Nucleated RBC % INR (Anticoag Therapy) 0.86 APTT 31.1 D-Dimer, Quantitative < 200 Sodium 135 L Potassium 3.9 Chloride 108 Carbon Dioxide 23 Anion Gap 4 BUN 21 Creatinine 0.88 Est GFR ( Amer) 87.8 Est GFR (Non-Af Amer) 68.3 BUN/Creatinine Ratio 23.9 H Glucose 92 Lactic Acid Calcium 9.1 Magnesium 2.1 Total Bilirubin 0.30 AST 17 ALT 9 Alkaline Phosphatase 68 Total Creatine Kinase 102 CK-MB (CK-2) 2.4 Troponin I 0.00 B-Natriuretic Peptide 17 Total Protein 7.3 Albumin 4.0 Globulin 3.3 Albumin/Globulin Ratio 1.2 Urine Color Urine Appearance Urine pH Ur Specific [place] Urine Protein Urine Ketones Urine Blood Urine Nitrate Urine Bilirubin Urine Urobilinogen Ur Leukocyte Esterase Urine Glucose Influenza A (Rapid) Influenza B (Rapid) 09/18/17 09/18/17 09/18/17 19:58 19:58 20:19 WBC 8.8 RBC 4.34 Hgb 13.1 Hct 38 MCV 87 MCH 30 MCHC 35 RDW 15 Plt Count 203 MPV 8.1 Neut % (Auto) 51.4 Lymph % (Auto) 39.0 [place] % (Auto) 7.3 H Eos % (Auto) 1.7 Baso % (Auto) 0.6 Absolute Neuts (auto) 4.5 Absolute Lymphs (auto) 3.4 Absolute Monos (auto) 0.6 Absolute Eos (auto) 0.1 Absolute Basos (auto) 0.1 Absolute Nucleated RBC 0 Nucleated RBC % 0 INR (Anticoag Therapy) APTT D-Dimer, Quantitative Sodium Potassium Chloride Carbon Dioxide Anion Gap BUN Creatinine Est GFR ( Amer) Est GFR (Non-Af Amer) BUN/Creatinine Ratio Glucose Lactic Acid 0.6 Calcium Magnesium Total Bilirubin AST ALT Alkaline Phosphatase Total Creatine Kinase CK-MB (CK-2) Troponin I B-Natriuretic Peptide Total Protein Albumin Globulin Albumin/Globulin Ratio Urine Color Urine Appearance Urine pH Ur Specific [place] Urine Protein Urine Ketones Urine Blood Urine Nitrate Urine Bilirubin Urine Urobilinogen Ur Leukocyte Esterase Urine Glucose Influenza A (Rapid) Negative Influenza B (Rapid) Negative 09/18/17 22:00 WBC RBC Hgb Hct MCV MCH MCHC RDW Plt Count MPV Neut % (Auto) Lymph % (Auto) [place] % (Auto) Eos % (Auto) Baso % (Auto) Absolute Neuts (auto) Absolute Lymphs (auto) Absolute Monos (auto) Absolute Eos (auto) Absolute Basos (auto) Absolute Nucleated RBC Nucleated RBC % INR (Anticoag Therapy) APTT D-Dimer, Quantitative Sodium Potassium Chloride Carbon Dioxide Anion Gap BUN Creatinine Est GFR ( Amer) Est GFR (Non-Af Amer) BUN/Creatinine Ratio Glucose Lactic Acid Calcium Magnesium Total Bilirubin AST ALT Alkaline Phosphatase Total Creatine Kinase CK-MB (CK-2) Troponin I B-Natriuretic Peptide Total Protein Albumin Globulin Albumin/Globulin Ratio Urine Color Colorless Urine Appearance Clear Urine pH 5.0 Ur Specific [place] 1.002 L Urine Protein Negative Urine Ketones Negative Urine Blood Negative Urine Nitrate Negative Urine Bilirubin Negative Urine Urobilinogen Negative Ur Leukocyte Esterase Negative Urine Glucose Negative Influenza A (Rapid) Influenza B (Rapid) ECG, personally reviewed: NSR rate 77, no ischemia CXR, personally reviewed: IMPRESSION: No radiographic evidence for acute cardiopulmonary abnormality on this portable chest x-ray. CTA chest, personally reviewed: no infiltrate seen, no PE seen, dilated pulmonary arteries consistent w/ severe pHTN; formal read pending Impression: 47F HX long-standing HIV+ status presents with sinus congestion failed outpatient ABX (likely viral) & DIAGNOSIS & PLAN Primary non-toxic sinusitis viral vs bacterial failed azithromycin : offered option of admission vs outpatient management, patient prefers discharge : PO levofloxacin 500mg x14 days : prednisone 60mg PO daily x3 days : benzonatate 200mg PO TID PRN cough : hydrocodone/APAP 5/325mg PO Q4H PRN pain : mometasone/formoterol 100/5 2 puffs BID : albuterol nebulizer Q4H while awake x3 days (patient reports having at home) : tiotropium 18mcgs INH daily (patient reports having at home : advised to return to ED for worsening SOB, F/C, intractable N/V, or other symptom she finds worrisome enough to warrant emergency evaluation : follow up with PCP in 3-5 days for recheck Secondary HX severe pulmonary HTN : no acute issues HX shingles : no acute issues HTN : continue current regimen HX hepatitis C : no acute issues
[2017-09-18 23:21] VITALS: BP 99/55
== END 2017-09-18 23:23 | disposition home or self-care (01) ==
LOC: ED 19:29
DX: R07.9 Chest pain, unspecified (principal); J98.01 Acute bronchospasm; I27.20 Pulmonary hypertension, unspecified; B20 Human immunodeficiency virus [HIV] disease; I10 Essential (primary) hypertension; B19.20 Unspecified viral hepatitis C without hepatic coma; Z87.891 Personal history of nicotine dependence
CPT/HCPCS: 36415; 71045; 80053; 81003; 82550; 82553; 83605; 83735; 83880; 84484; 85025; 85379; 85610; 85730; 87502; 93005; 94640; 96374; 96375; 99283; A9270-GY; J1170; J2270; J2930

== ENCOUNTER → 2018-06-23 17:10 | Emergency (ER) | payer BC ==
[2018-06-23 17:19] VITALS: BP 119/67
== END | disposition left against medical advice (07) ==
LOC: ED 17:10
DX: R10.2 Pelvic and perineal pain (principal); Z53.21 Procedure and treatment not carried out due to patient leaving prior to being seen by health care provider

== ENCOUNTER 2018-10-10 20:50 | Emergency (ER) | payer BC ==
--- NOTE | 2018-10-10 22:24 | ED ---
Throat Pain/Nasal Congestion - HPI Summary HPI Summary: A 48 y/o F presents to ED with c/o a bilateral swollen area in her throat onset two days ago and worsening. The area is tender to touch and the pain is radiating to her jaw. Associated sx: dysphagia, SAPP, SOB. Denies fever, CP, dizzy , syncope. PMHx: pulmonary HTN. - History of Current Complaint Chief Complaint: EDThroatPain Time Seen by Provider: 10/10/18 22:19 Hx Obtained From: Patient, Family/Bulk Station Agent - Onset/Duration: Gradual Onset, Lasting Days, Still Present Severity: Severe Associated Signs And Symptoms: Positive: Dysphagia - Allergies/Home Medications Allergies/Adverse Reactions: Allergies Allergy/AdvReac Type Severity Reaction Status Date / Time Adhesive Tape AdvReac Rash Verified 10/10/18 21:04 efavirenz AdvReac Rash Verified 10/10/18 21:04 piperacillin [From Zosyn] AdvReac Rash Verified 10/10/18 21:04 ritonavir [From Norvir] AdvReac Rash Verified 10/10/18 21:04 tazobactam [From Zosyn] AdvReac Rash Verified 10/10/18 21:04 Home Medications: Home Medications Ibuprofen TAB* [Motrin TAB* 600 MG] 600 mg PO Q6H PRN 10/10/18 [History Confirmed 10/10/18] Mirtazapine TAB* [Remeron TAB*] 15 mg PO DAILY WITH MEAL 10/10/18 [History Confirmed 10/10/18] PMH/Surg Hx/FS Hx/Imm Hx Previously Healthy: No Endocrine/Hematology History: Denies: Hx Diabetes, Hx Anemia Cardiovascular History: Reports: Hx Hypertension - PULMONARY HTN Respiratory History: Denies: Hx Asthma, Hx Chronic Obstructive Pulmonary Disease (COPD) - pt has pulm htn GI History: Reports: Other GI Disorders - PT REPORTS CHRONIC N/V EVER SINCE HIV DIAGNOSIS History: Denies: Hx Dialysis, Hx Renal Disease Sensory History: Reports: Hx Contacts or Glasses - LEFT AT HOME Denies: Hx Hearing Aid Opthamlomology History: Reports: Hx Contacts or Glasses - LEFT AT HOME Psychiatric History: Reports: Hx Anxiety - Surgical History Surgery Procedure, Year, and Place: DEVIATED SEPTUM REPAIR NOVEMBER 2015. HYSTERECTOMY 2O+YRS AGO Infectious Disease History: Yes Infectious Disease History: Reports: Hx Hepatitis - HEP C, Hx Human Immunodeficiency Virus (HIV), Hx Shingles Denies: Hx Clostridium Difficile, Hx of Known/Suspected MRSA, Hx Tuberculosis , Hx Known/Suspected VRSA, History Other Infectious Disease, Traveled Outside the [place] in Last 30 Days - Family History Known Family History: Positive: Hypertension - Social History Occupation: Works From/At Home - [employer]OMEM[employer] Lives: With Family Alcohol Use: Occasionally Hx Substance Use: No Substance Use Type: Reports: None Substance Use Comment - Amount & Last Used: Medical marijuana Hx Tobacco Use: Yes Smoking Status (MU): Former Smoker Type: Cigarettes Have You Smoked in the Last Year: No Review of Systems Negative: Fever Positive: Other - pos: throat pain and swollen area, dysphagia Negative: Chest Pain Positive: Shortness Of Breath Neurological: Other - neg: dizziness Positive: Headache. Negative: Syncope All Other Systems Reviewed And Are Negative: Yes Physical Exam - Summary Physical Exam Summary: Appearance: Well-appearing, Well-nourished, lying in bed comfortably Skin: Warm, dry, no obvious rash Eyes: sclera anicteric, no conjunctival pallor ENT: mucous membranes moist, pharynx appears normal Neck: Supple, firm and tender thyroid; worse on R than L Respiratory: Clear to auscultation, no signs of respiratory distress Cardiovascular: Normal S1, S2. No murmurs. Normal distal pulses in tibial and radial bilaterally. Abdomen: Soft, nontender, normal active bowel sounds present Musculoskeletal: Normal, Strength/ROM Intact Neurological: A&Ox3, awake and alert, mentation is normal, speech is fluent and appropriate Psychiatric: affect is normal, does not appear anxious or depressed Triage Information Reviewed: Yes Vital Signs On Initial Exam: Initial Vitals Temp Pulse Resp BP Pulse Ox 97.4 F 93 18 99/73 96 10/10/18 21:03 10/10/18 21:03 10/10/18 21:03 10/10/18 21:03 10/10/18 21:03 Vital Signs Reviewed: Yes Diagnostics - Vital Signs Vital Signs Temp Pulse Resp BP Pulse Ox 10/10/18 21:03 97.4 F 93 18 99/73 96 - Laboratory Result Diagrams: 10/10/18 22:36 10/10/18 22:36 Lab Statement: Any lab studies that have been ordered have been reviewed, and results considered in the medical decision making process. - Ultrasound No standard instances Ultrasound Interpretation Completed By: Radiologist Summary of Ultrasound Findings: Neck US IMPRESSION: Anterior neck cystic lesion with etiologies including exophytic thyroid cyst, thyroglossal duct cyst, thymic cyst, and less likely lymphangioma. ED provider has reviewed this report. Re-Evaluation - Re-Evaluation 1 Re-Evaluation Time: 00:02 Change: Improved Comment: Discussing US results with pt. EENT Course/Dx - Course Course Of Treatment: Pt is a 48 y/o F with PMHx: pulmonary HTN presenting with firm and tender thyroid, worse on R than L, onset two days ago. Associated sx: dysphagia, SAPP, SOB, jaw pain. Neck US shows "Anterior neck cystic lesion with etiologies including exophytic thyroid cyst, thyroglossal duct cyst, thymic cyst , and less likely lymphangioma.". Will discharge patient home. - Diagnoses Provider Diagnoses: Palpable mass of neck, Pulmonary hypertension - Provider Notifications Discussed Care Of Patient With: Gamaliel Castellanos - ENT Time Discussed With Above Provider: 23:54 Instructed by Provider To: Other - Recommends neck CT with contrast. Consulted again at 00:02: Discussed US results, no longer recommends CT. Discharge - Sign-Out/Discharge Documenting (check all that apply): Patient Departure - DC Patient Received Moderate/Deep Sedation with Procedure: No - Discharge Plan Condition: Good Disposition: HOME Prescriptions: oxyCODONE/Acetamin 5/325 MG* [Percocet 5/325 TAB*] 1 tab PO Q4H PRN #10 tab MDD 4 tabs PRN Reason: Pain Referrals: Gamaliel Castellanos MD [Medical Doctor] - Additional Instructions: The painful lump in your neck appears to be a cyst rather than an inflamed thyroid gland or tumor. Dr. Castellanos would like to see you in his office tomorrow to examine you himself and discuss any further needed evaluation. - Billing Disposition and Condition Condition: GOOD Disposition: Home - Attestation Statements Document Initiated by Scribe: Yes Documenting Scribe: Ric Lundberg Provider For Whom Scribe is Documenting (Include Credential): Dr. Austin Hall MD Scribe Attestation: Mariano, radha Jacquesibed for Dr. Austin Hall MD on 10/11/18 at 0245. Scribe Documentation Reviewed: Yes Provider Attestation: The documentation as recorded by the scribe, Ric Lundberg accurately reflects the service I personally performed and the decisions made by me, Dr. Austin Hall MD Status of Scribe Document: Viewed
[2018-10-10] MEDS ORDERED: Ketorolac INJ* 30 MG/ML 1 ML VIAL IV PUSH ONE (22:28)
[2018-10-10 22:45] LABS: ABS Basophils 0.1 10^3/ul (0-0.2); ABS Eosinophils 0.2 10^3/ul (0-0.6); ABS Lymphocytes 3.4 10^3/ul (1.0-4.8); ABS Monocytes 0.7 10^3/ul (0-0.8); ABS Neutrophils 3.7 10^3/ul (1.5-7.7); ABS Nucleated RBC 0 10^3/ul; Eosinophil % 2.2 %; Hematocrit 40 % (33-41); Hemoglobin 13.4 g/dL (12.0-16.0); Lymphocyte % 42.5 %; Mean Corpuscular HGB Conc 33 g/dL (31-36); Mean Corpuscular Hemoglobin 31 pg (27-31); Mean Corpuscular Volume 92 fL (80-97); Mean Platelet Volume 7.9 fL (7.4-10.4); Nucleated Red Blood Cells % 0.1; Platelet Count 216 10^3/uL (150-450); Red Blood Count 4.34 10^6 /uL (3.70-4.87); Red Cell Distribution Width 14 % (10.5-15); White Blood Count 8.1 10^3/uL (3.5-10.8)
[2018-10-10 23:02] LABS: Albumin/Globulin Ratio 1.2 (1-3); BUN/Creatinine Ratio 18.6 (8-20); Calcium 9.1 mg/dL (8.6-10.3); EGFR African American 58.7 (>60); EGFR Non-African American 48.5 (>60); Globulin 3.4 g/dL (2-4); Potassium 3.8 mmol/L (3.5-5.0); Total Bilirubin 0.3 mg/dL (0.2-1.0); Total Protein 7.4 g/dL (6.4-8.9)
[2018-10-10] MEDS ORDERED: oxyCODONE/Acetamin 5/325 MG* TAB PO ONE (23:12)
[2018-10-10 23:34] LABS: T4, Total 6.61 mcg/dL (6.09-12.23)
[2018-10-10 23:37] LABS: TSH (Thyroid Stimulating Horm) 6.02 mcIU/mL (0.34-5.60)
[2018-10-10 23:39] LABS: Free T4 0.72 ng/dL (0.61-1.12)
[2018-10-11] MEDS ORDERED: Iodixanol* (CONTRAST) 320 MG/ML 100 ML SDV IV ONE (00:06)
[2018-10-11 00:22] VITALS: BP 120/70
== END 2018-10-11 00:21 | disposition home or self-care (01) ==
LOC: ED 20:50
DX: R22.1 Localized swelling, mass and lump, neck (principal); I27.20 Pulmonary hypertension, unspecified; Z87.891 Personal history of nicotine dependence
CPT/HCPCS: 36415; 76536; 80053; 84436; 84439; 84443; 84479; 85025; 96374; 96375; 99284; A9270-GY; J1885

== ENCOUNTER 2018-11-24 08:39 | Day surgery (SDC) | payer BC ==
[~2018-11-24 08:39] MED LIST: Buffered Lidocaine 1% SYRIN* 1 ML/SYRINGE INTRADERM ONE; Dexamethasone TAB* 4 MG PO ONE; DiMENhydriNATE IV* 50 MG/ML VIAL IV PUSH PRN; Famotidine IV* 10 MG/ML 2 ML (20 mg) IV ONE; Lactated Ringers 1000 ML Bag* 1,000 ML IV SCH; Morphine 4 MG/ML VIAL (1 ml) 4 MG/ML VIAL IV PRN; Naloxone* 0.4 MG/ML 1 ML VIAL IV PRN; Ondansetron TAB* 4 MG PO ONE; PROCHLORPERAZINE INJ 5 MG/ML 2 ML VIAL IV PRN; oxyCODONE/Acetamin 5/325 MG* TAB PO PRN
[2018-11-24] MEDS ORDERED: Famotidine IV* 10 MG/ML 2 ML (20 mg) ONE (08:56)
[2018-11-24] MEDS ORDERED: Ondansetron ODT TAB* 4 MG ONE (08:56)
[2018-11-24] MEDS ORDERED: Dexamethasone TAB* 4 MG ONE (08:56)
[2018-11-24] MEDS ORDERED: Buffered Lidocaine 1% SYRIN* 1 ML/SYRINGE INTRADERM ONE (08:56)
[2018-11-24] MEDS ORDERED: fentaNYL* 50 MCG/ML 2 ML VIAL (100 MCG VIAL) ONE ×2 (09:58→12:18)
[2018-11-24] MEDS ORDERED: Midazolam* 1 MG/ML 5 ML VIAL (5 MG) ONE (09:59)
[2018-11-24] MEDS ORDERED: KETAMINE HCL* 50 MG/ML 10 ML VIAL ONE (09:59)
[2018-11-24] MEDS ORDERED: Lidocaine 2% EPI 1:200000 MPF*10-20 ML VIAL ONE (10:44)
[2018-11-24] MEDS ORDERED: Methylene Blue 0.5 %* 50 MG/10 ML AMP IV ONE (10:46)
[2018-11-24] MEDS ORDERED: Propofol* 10 MG/ML 20 ML BTL ONE (11:09)
[2018-11-24] MEDS ORDERED: Lidocaine 2% PF * 5 ML VIAL ONE (11:09)
[2018-11-24] MEDS ORDERED: Morphine 10 MG/ML VIAL (1 ml) ONE (11:10)
[2018-11-24] MEDS ORDERED: Glycopyrrolate IV* 0.2 MG/ML 1 ML VIAL ONE (11:10)
[2018-11-24] MEDS ORDERED: Metoprolol Tartrate IV* 1 MG/ML 5 ML VIAL ONE (11:50)
[2018-11-24] MEDS ORDERED: HYDROcodone/ACET. 7.5/325 LIQ* 15 ML UDC ONE (11:58)
[2018-11-24] MEDS: fentaNYL* 50 MCG/ML 2 ML VIAL (100 MCG VIAL) IV PRN ×4 (12:18→12:42)
--- NOTE | 2018-11-24 12:45 | OP ---
DATE OF OPERATION: 11/24/18 - [facility] DATE OF : 66 SURGEON: Phi Hamilton MD. PRE-OP DIAGNOSIS: Thyroglossal duct cyst. POST-OP DIAGNOSIS: Thyroglossal duct cyst. OPERATIVE PROCEDURE: Excision of thyroglossal duct cyst in a Sergio type procedure. BRIEF HISTORY: This 48-year-old female is presenting with midline neck mass highly suspicious for, on clinical examination, a thyroglossal duct cyst and would like to proceed with surgical management. DESCRIPTION OF PROCEDURE: The patient was taken to the operating room. General anesthetic was given. The patient was intubated. Neck was prepped and draped in the usual fashion. Curvilinear incision was made just 2 cm below the hyoid. Subplatysmal flaps were elevated. Strap muscle was then identified in the midline. Careful sharp and blunt dissection was carried out at the cyst and along the duct tract towards the hyoid. Mid portion of the hyoid was then skeletonized and resected out. The tract was then carried further into the tongue base, and then ligated there with silk. The wound was copiously irrigated. The wound was closed in 2 layers, using Vicryl. The patient was then awakened, sent to the recovery room in stable condition. Instrument and sponge counts were correct. Blood loss was minimal. [id number]/[facility] #: [id number] [facility] HOSPITALDeepthi
[2018-11-24 13:02] VITALS: BP 108/75
== END 2018-11-24 13:10 | disposition home or self-care (01) ==
LOC: OR 08:39
PROVIDERS: ATTEND Otolaryngology
DX: Q89.2 Congenital malformations of other endocrine glands (principal); I27.20 Pulmonary hypertension, unspecified; Z87.891 Personal history of nicotine dependence; Z21 Asymptomatic human immunodeficiency virus [HIV] infection status; I36.1 Nonrheumatic tricuspid (valve) insufficiency; I37.1 Nonrheumatic pulmonary valve insufficiency
CPT/HCPCS: 88305; 88311; A9270-GY; J2250; J2270; J2704; J3010; J3490; J8540

== ENCOUNTER 2019-06-11 06:13 | Emergency (ER) | payer BC ==
--- OUTSIDE RECORDS SUMMARY | 2019-06-11 06:22 | XMS REPORT | Summary of Care ---
:1970 Author Organization [facility] Address [address] [address] Care Team Providers Name Role Phone Ольга Childress MD Primary Care Provider Reason for Visit Reason Comments Cough Encounter Details Date Type Department Care Team Description 06/06/2019 Office Visit [facility] [place], Community acquired pneumonia of left lower lobe of lung (HCC) (Primary Dx); Practice Ольга Ray MD Other non-recurrent acute nonsuppurative otitis media of right ear; [address] Human immunodeficiency virus (HIV) disease ([facility]); [place] [address] [place] [address] Pulmonary artery hypertension ([facility]) [phone] Allergies Active Allergy Reactions Severity Noted Date Comments Efavirenz Rash 12/13/2008 Complete body rash. Zosyn Other 02/27/2016 Chills, shaking documented as of this encounter (statuses as of 06/06/2019) Medications Medication Sig Dispensed Refills Start Date End Date Status Ambrisentan 10 MG Take by mouth. 0 Active Oral Tab Bictegravir-Emtri Take by mouth 0 Active citab-Tenofov DAILY. (BIKTARVY) 50-200-25 MG Oral Tab MEDICAL MARIJUANA Take 1 Tab by 0 Active mouth EVERY TWO HOURS NEEDED. benzonatate Take 1 Cap by 42 Cap 0 06/06/2019 Active (TESSALON PERLES) mouth THREE 100 MG Oral TIMES DAILY CapIndications: NEEDED for Community cough. acquired pneumonia of left lower lobe of lung (HCC) albuterol HFA Take 2 Puffs by 1 Inhaler 1 06/06/2019 Active (VENTOLIN) 108 inhalation (90 Base) MCG/ACT EVERY FOUR Inhalation Aero HOURS NEEDED SolnIndications: (wheezing). Community acquired pneumonia of left lower lobe of lung (HCC) cefuroxime Take 1 Tab by 20 Tab 0 06/06/2019 Active (CEFTIN) 500 MG mouth TWICE 9 Oral DAILY for 10 TabIndications: days. Community acquired pneumonia of left lower lobe of lung (HCC) azithromycin Take 1 mL by 31.25 mL 0 06/06/2019 Active (ZITHROMAX) 200 mouth DAILY. MG/5ML Oral Recon SuspIndications: Community acquired pneumonia of left lower lobe of lung (HCC) azithromycin Take 1 mL by 31.25 mL 0 06/06/2019 Discontinued (ZITHROMAX) 200 mouth DAILY. 9 (Reorder) MG/5ML Oral Recon SuspIndications: Community acquired pneumonia of left lower lobe of lung (HCC) cefuroxime Take 1 Tab by 20 Tab 0 06/06/2019 Discontinued (CEFTIN) 500 MG mouth TWICE 9 (Reorder) Oral DAILY for 10 TabIndications: days. Community acquired pneumonia of left lower lobe of lung (HCC) albuterol HFA Take 2 Puffs by 1 Inhaler 1 06/06/2019 Discontinued (VENTOLIN) 108 inhalation 9 (Reorder) (90 Base) MCG/ACT EVERY FOUR Inhalation Aero HOURS NEEDED SolnIndications: (wheezing). Community acquired pneumonia of left lower lobe of lung (HCC) documented as of this encounter (statuses as of 06/06/2019) Active Problems Problem Noted Date History of hysterectomy 01/28/2010 Overview: Total hysterectomy about 1989 Human immunodeficiency virus (HIV) disease 12/13/2008 Overview: Dr. Chester Sanders, RN - [phone] Pulmonary artery hypertension 12/13/2008 Overview: Dr. Zeke Kapoor [phone] documented as of this encounter (statuses as of 06/06/2019) Resolved Problems Problem Noted Date Resolved Date Long-Term (Current) Use of Anticoagulants 12/13/2008 04/10/2010 Overview: Anticoagulation managed by [facility] Pt referred by Dr Garsia Dx: pulmonary hypertension INR range: 2.0-3.0 buttermaker treatment recommended by Dr Mari, Pulmonary Medicine, [facility]. documented as of this encounter (statuses as of 06/06/2019) Immunizations Name Administration Dates Next Due Hepatitis A Vaccine Peds 03/09/2008, 07/27/2007, 06/02/1992 Hepatitis B Vaccine 03/09/2008, 07/27/2007, 03/09/2002 Influenza (IM) Preservative Free 03/22/2018, 05/13/2017, 04/14/2014, 04/24/2011 Influenza (IM) W/Pres 04/27/2019, 05/20/2016 PNEUMOCOCCAL POLYSACCHARIDE VACCINE 05/24/2007, 06/22/2004 Pneumococcal Conjugate Vaccine 06/20/2014, 05/24/2007 Pneumococcal Conjugate(13 Valent) 06/20/2014 Pneumococcal Vaccine, Unspecified 03/22/2015 Formulation TDAP Vaccine 05/24/2007 TETANUS & DIPHTHERIA TOXOID (OVER 7 06/25/2012 YRS) ZOSTER (SHINGRIX) VACCINE 06/01/2019 dT Vaccine 06/25/2012 documented as of this encounter Social History Tobacco Use Types Packs/Day Years Used Date Former Smoker Cigarettes 0.5 24 Quit: 2013 Smokeless Tobacco: Never Used Alcohol Use Drinks/Week oz/Week Comments Yes 0 Standard drinks or equivalent 0.0 occas Alcohol Habits Answer Date Recorded How often do you have a drink containing alcohol? Monthly or less 11/10/2018 How many drinks containing alcohol do you have on a Not asked typical day when you are drinking? How often do you have six or more drinks on one Not asked occasion? Sex Assigned at Date Recorded Not on file Job Start Date Occupation Industry Not on file Not on file Not on file Travel History Travel Start Travel End No recent travel history available. documented as of this encounter Last Filed Vital Signs Vital Sign Reading Time Taken Comments Blood Pressure 124/72 06/06/2019 11:54 AM EST Pulse 92 06/06/2019 11:54 AM EST Temperature 37.5 06/06/2019 11:54 AM EST C (99.5 F) Respiratory Rate - - Oxygen Saturation 91% 06/06/2019 11:54 AM EST Inhaled Oxygen Concentration - - Weight 73.9 kg (163 lb) 06/06/2019 11:54 AM EST Height 162.6 cm (5' 4") 06/06/2019 11:54 AM EST Body Mass Index 27.98 06/06/2019 11:54 AM EST documented in this encounter Patient Instructions Patient InstructionsОльга Childress MD - 06/06/2019 11:40 AM ESTYou appear to have pneumonia. I started you on two antibiotics. If you worsen, have any problems breathing, please go right to the ER Rest, drink plenty of fluids. Return if worsening, or if not better in 7-01 days. You have been prescribed an antibiotic for treatment of your condition. It is important to rememberthat antibiotics treat bacterial infections, not viral infections. In order for them to be effective - you must take ALL of the medication and take it exactly as prescribed. FINISH THE MEDICATION - even if you are feeling better. Antibiotics can cause stomach upset and diarrhea, and increase the risk of C. Difficile Colitis. You can help decrease these symptoms/risks by taking a probiotic while using the medication (Emery Veloz for example). Take your antibiotic with food unless otherwise recommended by the pharmacist. documented in this encounter Progress Notes Ольга Childress MD - 06/06/2019 11:40 AM EST PATIENT: Saba Jackson : 1970 DATE OF SERVICE: 06/06/2019 CHIEF COMPLAINT: Chief Complaint Patient presents with Cough Subjective HISTORY OF PRESENT ILLNESS: Saba Jackson is a 48-y.o. female. Nursing Notes: Latanya Dunham LPN 06/06/2019 12:00 PM Signed Chief Complaint Patient presents with Cough Exposed to ill 1 year old. URI The history is provided by the patient. The current episode started yesterday. The problem has been rapidly worsening. There has been no fever. Associated symptoms include congestion, ear pain, cough and wheezing. Pertinent negatives include no chest pain, no abdominal pain, no diarrhea, no nausea, novomiting, no rhinorrhea, no sinus pain, no sore throat and no rash. Associated symptoms comments: Rib pain . She has tried NSAIDs for the symptoms. She was allergic to IV Zosyn but can take Augmentin and cephalosporins. Past Medical History: Diagnosis Date Human immunodeficiency virus (HIV) disease (HCC) 12/13/2008 Dr Mariano, ID, syracause; Undetectable.; dx age 22 Long-Term (Current) Use of Anticoagulants 12/13/2008 no longer, off this med Pulmonary artery hypertension (HCC) 12/13/2008 Dr. Mari Viral hepatitis Hepatitis C, treated and cured Family History Problem Relation Age of Onset Seizures Mother No Known Problems Father No Known Problems Brother No Known Problems Daughter Cancer No family history Diabetes No family history Heart No family history Stroke No family history Current Outpatient Medications Medication Sig albuterol HFA (VENTOLIN) 108 (90 Base) MCG/ACT Inhalation Aero Soln Take 2 Puffs by inhalation EVERY FOUR HOURS NEEDED (wheezing). Ambrisentan 10 MG Oral Tab Take by mouth. azithromycin (ZITHROMAX) 200 MG/5ML Oral Recon Susp Take 1 mL by mouth DAILY. benzonatate (TESSALON PERLES) 100 MG Oral Cap Take 1 Cap by mouth THREE TIMES DAILY NEEDEDfor cough. Kgtnacuxhkf-Xwlohgpwwh-Gphpkwv (BIKTARVY) 50-200-25 MG Oral Tab Take by mouth DAILY. cefuroxime (CEFTIN) 500 MG Oral Tab Take 1 Tab by mouth TWICE DAILY for 10 days. MEDICAL MARIJUANA Take 1 Tab by mouth EVERY TWO HOURS NEEDED. No current facility-administered medications for this visit. Allergies Allergen Reactions Efavirenz Rash Complete body rash. Zosyn Other Chills, shaking Social History Socioeconomic History Marital status: Spouse name: Not on file Number of children: Not on file Years of education: Not on file Highest education level: Not on file Occupational History Not on file Social Needs Financial resource strain: Not on file Food insecurity Worry: Not on file Inability: Not on file Transportation needs Medical: Not on file Non-medical: Not on file Tobacco Use Smoking status: Former Smoker Packs/day: 0.50 Years: 24.00 Pack years: 12.00 Types: Cigarettes Last attempt to quit: 2013 Years since quittin.9 Smokeless tobacco: Never Used Substance and Sexual Activity Alcohol use: Yes Alcohol/week: 0.0 standard drinks Frequency: Monthly or less Comment: occas Drug use: Yes Types: Marijuana Comment: medical marijuana Sexual activity: Yes Partners: Male Comment: Lifestyle Physical activity Days per week: Not on file Minutes per session: Not on file Stress: Not on file Relationships Social connections Talks on phone: Not on file Gets together: Not on file Attends gnosticism service: Not on file Active member of club or organization: Not on file Attends meetings of clubs or organizations: Not on file Relationship status: Not on file Intimate partner violence Fear of current or ex partner: Not on file Emotionally abused: Not on file Physically abused: Not on file Forced sexual activity: Not on file Other Topics Concern Back Care Not Asked Bike Helmet Not Asked Blood Transfusions Not Asked Caffeine Concern Not Asked Exercise Not Asked Hobby Hazards Not Asked International Travel Not Asked Service Not Asked Occupational Exposure Not Asked Seat Belt Not Asked Self-Exams Not Asked Sleep Concern Not Asked Special Diet Not Asked Stress Concern Not Asked Weight Concern Not Asked Social History Narrative Lives with REVIEW OF SYSTEMS: Review of Systems Constitutional: Positive for malaise/fatigue. Negative for chills, fever and weight loss. HENT: Positive for congestion and ear pain. Negative for ear discharge, rhinorrhea, sinus pain and sore throat. Eyes: Negative for redness. Respiratory: Positive for cough and wheezing. Negative for hemoptysis, sputum production and shortness of breath. Harsh painful cough Cardiovascular: Negative for chest pain and palpitations. Has chest wall pain/ pain with cough Gastrointestinal: Negative for abdominal pain, diarrhea, nausea and vomiting. Skin: Negative for rash. Neurological: Negative for dizziness. Objective PHYSICAL EXAM: VITALS: BP 124/72 (BP Location: Left arm, Patient Position: Sitting) | Pulse 92 | Temp 99.5 F(37.5 C) (Tympanic) | Ht 5' 4" (1.626 m) | Wt 163 lb (73.9 kg) | SpO2 91% | No | BMI 27.98 kg/m Body mass index is 27.98 kg/m. Physical Exam Constitutional: General: She is not in acute distress. Appearance: Normal appearance. She is not ill-appearing. HENT: Head: Normocephalic and atraumatic. Right Ear: Ear canal normal. Left Ear: Tympanic membrane and ear canal normal. Nose: Congestion and rhinorrhea present. Mouth/Throat: Mouth: Mucous membranes are moist. Pharynx: Posterior oropharyngeal erythema present. No oropharyngeal exudate. Eyes: Conjunctiva/sclera: Conjunctivae normal. Neck: Musculoskeletal: Normal range of motion and neck supple. No neck rigidity or muscular tenderness. Vascular: No carotid bruit. Cardiovascular: Rate and Rhythm: Normal rate. Pulses: Normal pulses. Heart sounds: Normal heart sounds. Pulmonary: Effort: Pulmonary effort is normal. No respiratory distress. Breath sounds: No stridor. Comments: Crackles left lower lobe, rhonchi and end exp wheezing right upper lobe and right lowerlobe Abdominal: General: Abdomen is flat. There is no distension. Palpations: Abdomen is soft. There is no mass. Tenderness: There is no abdominal tenderness. There is no right CVA tenderness, left CVA tenderness, guarding or rebound. Hernia: No hernia is present. Lymphadenopathy: Cervical: Cervical adenopathy present. Skin: Findings: No rash. Neurological: General: No focal deficit present. Mental Status: She is alert and oriented to person, place, and time. Psychiatric: Mood and Affect: Mood normal. Behavior: Behavior normal. ASSESSMENT / IMPRESSION: ICD-9-CM ICD-10-CM 1. Community acquired pneumonia of left lower lobe of lung ([facility]) 481 J18.1 benzonatate (TESSALON PERLES) 100 MG Oral Cap albuterol HFA (VENTOLIN) 108 (90 Base) MCG/ACT Inhalation Aero Soln cefuroxime (CEFTIN) 500 MG Oral Tab azithromycin (ZITHROMAX) 200 MG/5ML Oral Recon Susp DISCONTINUED: azithromycin (ZITHROMAX) 200 MG/5ML Oral Recon Susp DISCONTINUED: cefuroxime (CEFTIN) 500 MG Oral Tab DISCONTINUED: albuterol HFA (VENTOLIN) 108 (90 Base) MCG/ACT Inhalation Aero Soln 2. Other non-recurrent acute nonsuppurative otitis media of right ear 381.00 H65.191 3. Human immunodeficiency virus (HIV) disease ([facility]) 042 B20 4. Pulmonary artery hypertension ([facility]) 416.8 I27.21 Plan Patient Instructions You appear to have pneumonia. I started you on two antibiotics. If you worsen, have any problems breathing, please go right to the ER Rest, drink plenty of fluids. Return if worsening, or if not better in 7-01 days. You have been prescribed an antibiotic for treatment of your condition. It is important to rememberthat antibiotics treat bacterial infections, not viral infections. In order for them to be effective - you must take ALL of the medication and take it exactly as prescribed. FINISH THE MEDICATION - even if you are feeling better. Antibiotics can cause stomach upset and diarrhea, and increase the risk of C. Difficile Colitis. You can help decrease these symptoms/risks by taking a probiotic while using the medication (Align, Culturelle for example). Take your antibiotic with food unless otherwise recommended by the pharmacist. Author: Ольга Childress MD 06/06/2019 12:21 documented in this encounter Plan of Treatment Health Maintenance Due Date Last Done Comments MENINGOCOCCAL VACCINE IMM (1 1970 - Risk start before 7 months 4-dose series) MAMMOGRAM (SCREENING) 12/21/2009 12/21/2008 Colonoscopy 2018 ZOSTER IMMUNIZATION SERIES 2018 (1 of 2) INFLUENZA VACCINE (#1) 2019 03/22/2018, 05/13/2017, 04/14/2014, Additional history exists DEPRESSION SCREENING 06/24/2019 06/24/2018 DIABETES SCREENING 11/11/2019 11/10/2018, 06/24/2018 DTaP/Tdap/Td Vaccines (3 - 06/25/2022 06/25/2012, 05/24/2007 Tdap) LIPID DISORDER SCREENING 06/24/2023 06/24/2018, 12/26/2008, 03/23/2002 HEPATITIS A IMMUNIZATION Aged Out 03/09/2008, 07/27/2007, No longer eligible SERIES 06/02/1992 based on patient's age to complete this topic PNEUMOCOCCAL 0-64 YRS Completed 03/22/2015, 06/20/2014, 06/20/2014, Additional history exists HPV IMMUNIZATION SERIES Aged Out No longer eligible based on patient's age to complete this topic documented as of this encounter Results Not on filedocumented in this encounter Visit Diagnoses Diagnosis Community acquired pneumonia of left lower lobe of lung (HCC) Other non-recurrent acute nonsuppurative otitis media of right ear Human immunodeficiency virus (HIV) disease (HCC) Human immunodeficiency virus [HIV] disease Pulmonary artery hypertension (HCC) Other chronic pulmonary heart diseases documented in this encounter Guarantor Name Account Type Relation to Date of Phone Billing Patient Address Saba Jackson Personal/Family [id number] (Home) [place], [place] [phone] [id number] (Work) documented as of this encounter
[2019-06-11] MEDS ORDERED: Albuterol/Ipratropium NEB.SOL* Albuterol 2.5 MG/Ipratropium 0.5 MG 3 ML INH ONE ×2 (06:31→08:12)
[2019-06-11] MEDS ORDERED: NS 0.9% 1000 ML** 1,000 ML IV ONE (06:32)
--- NOTE | 2019-06-11 06:38 | ED ---
Shortness of Breath - HPI Summary HPI Summary: Pt. is a 48 y.o female who presents to the ER for increased shortness of breath and cough x 5 days. Pt. states she was seen by PCP 06/06/19 and started on azithromycin and cefuoxime. Pt. states cough is getting worse. She has been using ventolin without improvement. Past medical hx of pulmonary HTN, HIV. Sxs are moderate in severity. No current modifying factors. Pt. notes she has home O2 and typically wears it at night and does need it through the day. - History of Current Complaint Chief Complaint: EDShortnessOfBreath Time Seen by Provider: 06/11/19 06:27 Hx Obtained From: Patient - Allergy/Home Medications Allergies/Adverse Reactions: Allergies Allergy/AdvReac Type Severity Reaction Status Date / Time Adhesive Tape AdvReac Rash Verified 06/11/19 06:46 efavirenz AdvReac Rash Verified 06/11/19 06:46 piperacillin [From Zosyn] AdvReac Rash Verified 06/11/19 06:46 ritonavir [From Norvir] AdvReac Rash Verified 06/11/19 06:46 tazobactam [From Zosyn] AdvReac Rash Verified 06/11/19 06:46 Home Medications: Home Medications Azithromycin 1 ml PO DAILY 06/11/19 [History Confirmed 06/11/19] Benzonatate CAP* [Tessalon 100 MG CAP*] 1 tab PO TID PRN 06/11/19 [History Confirmed 06/11/19] Cefuroxime 500 MG(NF) 1 tab PO BID 06/11/19 [History Confirmed 06/11/19] Dextromethorphan Polistirex [Delsym] 30 mg PO Q8H PRN 06/11/19 [History Confirmed 06/11/19] PMH/Surg Hx/FS Hx/Imm Hx Previously Healthy: Yes Endocrine/Hematology History: Denies: Hx Diabetes, Hx Anemia Cardiovascular History: Reports: Hx Hypertension - PULMONARY HTN Respiratory History: Denies: Hx Asthma, Hx Chronic Obstructive Pulmonary Disease (COPD) - pt has pulm htn GI History: Denies: Other GI Disorders History: Denies: Hx Dialysis, Hx Renal Disease Sensory History: Reports: Hx Contacts or Glasses - GLASSES Denies: Hx Hearing Aid Opthamlomology History: Reports: Hx Contacts or Glasses - GLASSES Psychiatric History: Reports: Hx Anxiety - Surgical History Surgery Procedure, Year, and Place: DEVIATED SEPTUM REPAIR NOVEMBER 2015. HYSTERECTOMY Hx Anesthesia Reactions: No Infectious Disease History: Yes Infectious Disease History: Reports: Hx Hepatitis - HEP C, Hx Human Immunodeficiency Virus (HIV), Hx Shingles Denies: Hx Clostridium Difficile, Hx of Known/Suspected MRSA, Hx Tuberculosis , Hx Known/Suspected VRSA, History Other Infectious Disease, Traveled Outside the [place] in Last 30 Days - Family History Known Family History: Positive: Hypertension, Non-Contributory - Social History Occupation: Unemployed Lives: With Family Alcohol Use: Occasionally Hx Substance Use: No Substance Use Type: Reports: None Substance Use Comment - Amount & Last Used: Medical marijuana Hx Tobacco Use: Yes Smoking Status (MU): Former Smoker Type: Cigarettes Have You Smoked in the Last Year: No Review of Systems Constitutional: Negative Negative: Fever Eyes: Negative ENT: Negative Cardiovascular: Negative Negative: Chest Pain Positive: Shortness Of Breath, Cough Gastrointestinal: Negative Negative: Abdominal Pain, Vomiting, Diarrhea Genitourinary: Negative Skin: Negative Negative: Rash Neurological: Negative All Other Systems Reviewed And Are Negative: Yes Physical Exam Triage Information Reviewed: Yes Vital Signs On Initial Exam: Initial Vitals Temp Pulse Resp BP Pulse Ox 98.0 F 92 18 121/86 89 06/11/19 06:14 06/11/19 06:14 06/11/19 06:14 06/11/19 06:14 06/11/19 06:14 Vital Signs Reviewed: Yes Appearance: Positive: Well-Appearing - Pt. sitting up in bed in NAD. SO present. Skin: Positive: Warm, Dry Head/Face: Positive: Normal Head/Face Inspection Eyes: Positive: Normal, EOMI, NEPTALI, Conjunctiva Clear ENT: Positive: Pharynx normal, TMs normal Neck: Positive: Supple, Nontender. Negative: Nuchal Rigidity Respiratory/Lung Sounds: Positive: Other - Diffuse inspiratory wheeze and rhonchi throughout. Cardiovascular: Positive: Normal, RRR Neurological: Positive: Normal, CN Intact II-III Psychiatric: Positive: Affect/Mood Appropriate Procedures - Sedation Patient Received Moderate/Deep Sedation with Procedure: No Diagnostics - Vital Signs Vital Signs Temp Pulse Resp BP Pulse Ox 06/11/19 06:14 98.0 F 92 18 121/86 89 - Laboratory Result Diagrams: 06/11/19 06:54 06/11/19 06:54 Lab Statement: Any lab studies that have been ordered have been reviewed, and results considered in the medical decision making process. Course/Dx - Course Course Of Treatment: Patient with the worsening cough and wheeze. Patient's oxygen saturation dropped to high 80s and was placed on 2 L nasal cannula. Labs and chest x-ray ordered. ECG done at 0645 shows a sinus rhythm of 80bpm, normal axis, new flipped twaves in V3, no STEMI. CXR per radiology: IMPRESSION : OVERLYING THE RIGHT HILUM THERE IS A 2.8 X 3.2 CM DENSITY IN THE AP PROJECTION THAT IS. SLIGHTLY LARGER WHEN COMPARED TO THE SEPTEMBER 18, 2017 CHEST X -RAY. CLINICALLY WARRANTED. THIS CAN BE BETTER CHARACTERIZED WITH A CONTRAST -ENHANCED CT OF THE CHEST. CT chest per radiology: IMPRESSION: There is a small amount of calcification overlying the right hilum, presumably located. within a lymph node that potentially corresponds to the density seen on the same day chest. x-ray. Otherwise there are no focal masses either in the lung or anywhere in the right. hemithorax that would correspond to the appearance of today's chest x-ray. Potentially the. apparent density on today's chest x- ray May simply be a confluence of hilar blood vessels. Labs are unremarkable including normal CBC and CRP. Imaging as noted above. After 2 breathing treatments chest sounds much better and wheezing and rhonchi have resolved. Patient is feeling much better and is dressed, sitting on the edge of her bed requesting to be discharged. Oxygen saturation has improved to mid 90s on room air. We'll place patient on a couple days of prednisone. Advised patient to use her inhaler at home 2 puffs every 4-6 hours. To call family doctor Thursday for close follow-up and return to the ER symptoms change or worsen. Patient understands and agrees with plan. - Diagnoses Differential Diagnosis/HQI/PQRI: Positive: Asthma, Bronchitis, COPD Exacerbation , [place], Pneumonia Provider Diagnoses: Bronchitis Discharge ED - Sign-Out/Discharge Documenting (check all that apply): Patient Departure - Discharge Plan Condition: Improved Disposition: HOME Prescriptions: predniSONE TAB* [Deltasone 20 MG TAB*] 40 mg PO DAILY #10 tab Patient Education Materials: Acute Bronchitis (ED) Referrals: Ольга Childress MD [Primary Care Provider] - Additional Instructions: Follow up with PCP on Thursday for recheck Can continue antibiotic as directed Steroid as directed Albuterol inhaler 2 puffs every 4-6 hours Increase fluids and rest Return to ER for fever, worsening shortness of breath or if concerned - Billing Disposition and Condition Condition: IMPROVED Disposition: Home - Attestation Statements Provider Attestation: I was available for consult. This patient was seen by the [facility]. The patient was not presented to, seen by, or examined by me. Facundo Almanza MD
[2019-06-11 07:12] LABS: ABS Eosinophils 0.1 10^3/ul (0-0.6); ABS Lymphocytes 2.4 10^3/ul (1.0-4.8); ABS Monocytes 0.5 10^3/ul (0-0.8); ABS Neutrophils 4.6 10^3/ul (1.5-7.7); Eosinophil % 1.3 %; Hematocrit 43 % (35-47); Hemoglobin 15.1 g/dL (12.0-16.0); Lymphocyte % 31.3 %; Mean Corpuscular HGB Conc 35 g/dL (31-36); Mean Corpuscular Hemoglobin 32 pg (27-31); Mean Corpuscular Volume 91 fL (80-97); Mean Platelet Volume 7.4 fL (7.4-10.4); Platelet Count 228 10^3/uL (150-450); Red Blood Count 4.75 10^6 /uL (3.70-4.87); Red Cell Distribution Width 14 % (10-15); White Blood Count 7.7 10^3/uL (3.5-10.8)
[2019-06-11 07:18] LABS: Activated Partial Thrombo Time 33.8 seconds (26.0-38.0); INR 0.99 (0.82-1.09)
[2019-06-11 07:27] LABS: Influenza A Molecular NEGATIVE (Negative); Influenza B Molecular NEGATIVE (Negative)
[2019-06-11 07:28] LABS: Albumin 4.2 g/dL (3.2-5.2); Albumin/Globulin Ratio 1.1 (1-3); C Reactive Protein 3.03 mg/L (<8.01); Calcium 9.5 mg/dL (8.6-10.3); EGFR African American 85.7 (>60); EGFR Non-African American 70.8 (>60); Globulin 3.7 g/dL (2-4); Total Bilirubin 0.4 mg/dL (0.2-1.0); Total Protein 7.9 g/dL (6.4-8.9)
[2019-06-11] MEDS ORDERED: Acetaminophen TAB* 325 MG PO ONE (08:06)
[2019-06-11] MEDS ORDERED: Iohexol 300* (CONTRAST) 10 ML SDV IV ONE (09:26)
[2019-06-11 10:36] VITALS: BP 109/61
== END 2019-06-11 10:36 | disposition home or self-care (01) ==
LOC: ED 06:13
DX: J40 Bronchitis, not specified as acute or chronic (principal); R06.02 Shortness of breath; I10 Essential (primary) hypertension; F41.9 Anxiety disorder, unspecified; Z87.891 Personal history of nicotine dependence; R05 Cough
CPT/HCPCS: 36415; 71046; 71260; 80053; 83605; 84484; 85025; 85610; 85730; 86140; 87040; 87070; 87205; 93005; 99283; A9270-GY; Q9967